=== PATIENT | female | born 1955 | race Caucasian/White ===

== ENCOUNTER 2023-10-31 12:58 | Inpatient (IN) | payer MEDICARE, SELFPAY ==
[2023-10-31] VITALS (42 sets, daily range): BP systolic 119–231; BP diastolic 56–145; PULSE 87–129; RESP 15–25; TEMP 36.5–36.9; O2SAT 92–99; BMI 25.7; BMI 25.9
--- NOTE | 2023-10-31 13:00 | RAD_ITS ---
STUDY: X-RAY CHEST REASON FOR EXAM: Female, 68 years old. Neuro deficit, acute, stroke suspected TECHNIQUE: Single AP portable view of the chest. COMPARISON: None. FINDINGS: EKG electrodes are seen. Vascular congestion and CHF. Left basilar atelectasis. There is borderline cardiomegaly. Normal mediastinum and ralhp. Normal visualized pulmonary arteries. Normal visualized aortic arch and descending thoracic aorta. Normal visualized thoracic spine. Normal visualized ribs, clavicles, and shoulders. There is no demonstrated abnormality of the visualized soft tissue structures of the upper abdomen. RAD/Chest 1 View IMPRESSION: Borderline cardiomegaly. Findings suggestive of vascular congestion and CHF. Electronically Signed: Mann Zamora MD at 14:47 EDT ,
--- NOTE | 2023-10-31 13:00 | CT_ITS ---
STUDY: CTA HEAD AND NECK WITH CONTRAST REASON FOR EXAM: Female, 68 years old. Neuro deficit, acute, stroke suspected RADIATION DOSAGE (If Supplied By Facility): CTDIvol = ( 29.31 ) mGy, DLP = ( 724.99 ) mGycm TECHNIQUE: CT angiography was performed with a multi-detector CT scanner. Data acquisition was obtained from the skull base through the vertex following intravenous administration of IV 100mL Isovue-370. MIP images were reconstructed from the axial data set. Post-processing of the angiographic images was performed, with multiplanar reformation and 3D reconstruction. Individualized dose optimization techniques were used for this CT. COMPARISON: No relevant priors. FINDINGS: Normal bilateral petrous carotid arteries. There is calcified plaque formation of the right cavernous carotid artery, without a cross-sectional luminal stenosis. There is calcified plaque formation of the left cavernous carotid artery, without a cross-sectional luminal stenosis. Normal right A1 segments of the anterior cerebral artery. Normal left A1 segments of the anterior cerebral artery. Normal intact anterior communicating artery (ACOM). Normal bilateral A2 segments of the anterior cerebral arteries. Normal right M1 and M2 segments of the middle cerebral arteries, with a normal M1 bifurcation. Normal left M1 and M2 segments of the middle cerebral arteries, with a normal M1 bifurcation. Normal right posterior communicating artery (PCOM). Normal left posterior communicating artery (PCOM). Normal bilateral vertebral arteries. Normal basilar artery with a normal basilar bifurcation. The visualized bilateral superior cerebellar (SCA) arteries are normal. Normal bilateral P1, P2 and visualized P3 segments of the posterior cerebral arteries. Opacification of the right maxillary sinus. There is no demonstrated aneurysm of the [place]. AORTIC ARCH: There is atherosclerotic calcific plaque formation of the aortic arch and great vessels arising from the aortic arch, without a hemodynamically significant stenosis. There is a normal origin of the brachiocephalic, left common carotid, and left subclavian arteries. RIGHT CAROTID ARTERIES: Normal right common carotid artery (CCA). Normal right common carotid bulb. Normal origin of the right internal carotid (ICA) artery without a hemodynamically significant stenosis. Normal visualized cervical portion of the right internal carotid artery. Normal origin of the right external carotid artery (ECA). LEFT CAROTID ARTERIES: Normal left common carotid artery (CCA). Normal left common carotid bulb. Normal origin of the left internal carotid (ICA) artery without a hemodynamically significant stenosis. Normal visualized cervical portion of the left internal carotid artery. Normal origin of the left external carotid artery (ECA). VERTEBRAL ARTERIES: Normal bilateral vertebral arteries. CT/STROKE CTA Head AND Neck W/Con IMPRESSION: Atherosclerotic changes of the aortic arch. Small mediastinal adenopathy. N.B. : The above Results were Read Back by Mann Zamora MD to Michael Burgess and understanding confirmed on 10/31/2023 13:41:59 (ET). Electronically Signed: Mann Zamora MD at 13:43 EDT ,
--- NOTE | 2023-10-31 13:00 | EKG12_ITS ---
Test Reason : STROKE TEAM Blood Pressure : / mmHG Vent. Rate : 099 BPM Atrial Rate : 000 BPM P-R Int : 000 ms QRS Dur : 100 ms QT Int : 370 ms P-R-T Axes : 000 086 209 degrees QTc Int : 474 ms Atrial fibrillation with premature ventricular or aberrantly conducted complexes Incomplete right bundle branch block Nonspecific ST and T wave abnormality Prolonged QT Abnormal ECG Confirmed by Ramón Avery ([id number]), film or videotape editor [employer]IL [employer]ICE ([id number]) on 11/04/2023 5:59:09 AM Referred By: Confirmed By:Ramón Avery
--- NOTE | 2023-10-31 13:00 | CT_ITS ---
STUDY: CT HEAD STROKE PROTOCOL W/O CONTRAST INJECTION REASON FOR EXAM: Female, 68 years old. Neuro deficit, acute, stroke suspected RADIATION DOSAGE (If Supplied By Facility): CTDIvol = ( 44.99 ) mGy, DLP = ( 947.97 ) mGycm TECHNIQUE: Transaxial CT imaging of the brain was performed without administration of intravenous contrast material. Individualized dose optimization techniques were used for this CT. COMPARISON: No relevant priors. FINDINGS: Normal soft tissue structures. Normal calvarium. There is mild cerebral atrophy with widening of the extra-axial spaces and ventricular dilatation. There are areas of decreased attenuation within the white matter tracts of the supratentorial brain, consistent with microvascular disease changes. Small lacunae in the insular cortex of the left temporal lobe. Lacuna in the right thalamus. Normal brainstem. Normal cerebellum. There is no intracranial hemorrhage. There are no findings of an acute ischemic infarction. Atherosclerotic calcification of the cavernous portions of internal carotid arteries bilaterally. Normal visualized paranasal sinuses. ASPECT score: 10 CT/STROKE Brain/Head without Cont IMPRESSION: Chronic involutional changes of the brain. Findings there is a old lacunar in the insular cortex of the left temporal lobe and right thalamus N.B. : The above Results were Read Back by Mann Zamora MD to Michael Burgess and understanding confirmed on 10/31/2023 13:16:22 (ET). Electronically Signed: Mann Zamora MD at 13:16 EDT ,
--- NOTE | 2023-10-31 13:02 | ED.VIS.STROK ---
HPI History of Present Illness Chief Complaint: Stroke Alert Informant: patient, family ( not here on initial presentation.) and EMS Onset/Context/Timing Onset: Today Context: Sudden Onset and - (Approximately 12:15 PM.) Timing: Continuous Quality and Location: Positive for Left Arm Weakness and Left Leg Weakness Onset: 12:15 PM Current Severity: Severe Maximum Severity: Severe Associated Symptoms Associated Symptoms: Negative for Headache, Nausea, Vomiting or Chest Pain Narrative Narrative: 68-year-old female her and her are from [place] they were camping locally and around 12:15 PM today about 45 minutes ago she had sudden onset of left-sided weakness and mental status change. Reportedly no recent illness. She is a limited informant. History currently is from the [facility]. is not here yet. Reportedly she has a history of A-fib and diabetes and is on Coumadin. No known stroke history. Prior similar symptoms: No Recent Illness/Hospitalization: No [facility] Medical History (Updated 10/31/23 @ 14:14 by Carlos Alberto Barragan) Diabetes mellitus Home Medications ?Medication ?Instructions ?Recorded ?Last Taken ?Type biotin 5,000 mcg sublingual tablet 5,000 mcg sublingual DAILY 10/31/23 10/31/23 History carvedilol 25 mg tablet 50 mg PO BID 10/31/23 10/31/23 History cephalexin 250 mg capsule 500 mg PO DAILY 10/31/23 10/31/23 History cyclosporine 0.05 % eye drops in a 1 drp EACH EYE Q12H 10/31/23 Unknown History dropperette (Restasis) digoxin 250 mcg (0.25 mg) tablet 250 mcg PO DAILY 10/31/23 10/31/23 History (Digitek) estradiol 0.01% (0.1 mg/gram) 2 g vaginal MOWEFR 10/31/23 Unknown History vaginal cream (Estrace) furosemide 20 mg tablet 20 mg PO DAILY 10/31/23 10/31/23 History insulin glargine 100 unit/mL (3 35 unit subcut QPM 10/31/23 10/30/23 History mL) subcutaneous pen (Lantus Solostar U-100 Insulin) insulin lispro 100 unit/mL 1 unit subcut TID 10/31/23 10/31/23 History subcutaneous pen (Humalog KwikPen (U-100) Insulin) irbesartan 300 mg tablet 300 mg PO DAILY 10/31/23 10/31/23 History rivaroxaban 20 mg tablet (Xarelto) 20 mg PO DAILY 10/31/23 10/31/23 History rosuvastatin 5 mg tablet 5 mg PO DAILY 10/31/23 10/31/23 History tobramycin 0.3 % eye drops 1 drp EACH EYE Q8H 10/31/23 Unknown History Allergy/AdvReac Type Severity Reaction Status Date / Time morphine Allergy Mild PT UNSURE Verified 10/31/23 13:34 OF REACTION Social History Smoking Status: Never smoker ROS ROS ED ROS Narrative Recent UTI per nursing. Very limited history due to mental status currently. Review of Systems ROS Unobtainable: due to mental status EXAM Physical Exam Narrative Exam Narrative: 68-year-old female brought in by squad mats in the ambulance bay. We do not have vital signs as of yet. Patient is awake. Pupils round react to light. No facial droop. She seems confused. There is no trauma to her face or head. Neck nontender. Lungs clear to auscultation bilaterally. Heart irregularly irregular. Chest wall and ribs nontender. Abdomen soft nontender. She seems to have weakness in her left lower extremity. Her right arm and leg appear unremarkable when she is moving the left arm. Neurologically she is confused. She is a limited informant. She follows very limited commands. She has obvious left leg weakness. Patient was made stroke protocol and we were notified 50 minutes prior to arrival. She is currently going to CAT scan. Const Vital Signs: 10/31/23 13:00 10/31/23 13:00 10/31/23 13:09 Temperature 98.1 F Temperature Source Oral Pulse Rate 96 97 Respiratory Rate 18 22 H Blood Pressure 184/98 H 184/98 H Blood Pressure Mean 126 126 Pulse Ox 94 98 93 Oxygen Delivery Method Room Air Nasal Cannula Room Air Oxygen Flow Rate (L/min) 3 10/31/23 13:21 10/31/23 13:30 10/31/23 13:42 Temperature 98.2 F Temperature Source Axillary Pulse Rate 90 110 H Respiratory Rate 18 21 H Blood Pressure 175/107 H 231/131 H 175/107 H Blood Pressure Mean 129 164 Pulse Ox 93 98 Oxygen Delivery Method Room Air Nasal Cannula Oxygen Flow Rate (L/min) 2 3 10/31/23 13:58 10/31/23 14:00 10/31/23 14:00 Temperature Temperature Source Pulse Rate 87 94 102 H Respiratory Rate 24 H 24 H 22 H Blood Pressure 213/102 H 213/102 H 179/108 H Blood Pressure Mean 139 139 131 Pulse Ox 98 99 99 Oxygen Delivery Method Nasal Cannula Nasal Cannula Nasal Cannula Oxygen Flow Rate (L/min) 3 3 3 10/31/23 14:21 10/31/23 14:30 10/31/23 15:00 Temperature 98.0 F 97.9 F Temperature Source Axillary Axillary Pulse Rate 101 H 117 H 111 H Respiratory Rate 15 21 H 18 Blood Pressure 176/111 H 164/117 H 160/101 H Blood Pressure Mean 132 132 120 Pulse Ox 99 95 97 Oxygen Delivery Method Nasal Cannula Nasal Cannula Nasal Cannula Oxygen Flow Rate (L/min) 3 3 3 10/31/23 15:00 Temperature 97.9 F Temperature Source Axillary Pulse Rate 106 H Respiratory Rate 18 Blood Pressure 160/101 H Blood Pressure Mean 120 Pulse Ox 98 Oxygen Delivery Method Nasal Cannula Oxygen Flow Rate (L/min) 3 Positive well nourished and well developed; Negative for cachectic, contractures or unkempt General Appearance ED: well developed; Negative for unkempt, cachectic, contractures or NAD Nutritional Appearance: Negative for cachectic HEENT Reports moist mucous membranes atraumatic; Negative for trauma Eyes General Eye ED: Negative for pale conjunctiva or scleral icterus Neck no lymphadenopathy, supple and no JVD General: Negative for tenderness Thyroid: Negative for other Chest Wall inspection of chest normal and palpation of chest normal Resp normal respiratory effort and clear to auscultation bilaterally Effort and Inspection: Negative for retractions or pain with movement Auscultation: Negative for rales, rhonchi, wheezes or diminished lung sounds Cardio no murmurs Rate: Negative for regular rate Rhythm: abnormal rhythm GI normal to inspection, nondistended, normoactive bowel sounds, soft to palpation, non-tender, non-distended and no masses Inspection: Negative for abdominal distention Auscultation: normoactive bowel sounds Palpation: Negative for tender, guarding, hepatomegaly or mass Back/Spine no CVA tenderness General Back: Negative for CVA tenderness Cervical Spine: Negative for cervical spine tenderness Thoracic Spine / Upper Back: Negative for thoracic spinal tenderness Lumbar Spine / Lower Back: Negative for lumbar spinal tenderness Extremity Negative for normal to inspection Extremity Narrative: Left lower extremity weakness. Not moving it. General Extremety ED: Negative for deformity, edema or tenderness General Extremity: Negative for deformity or edema Neuro No oriented x3 Neuro Narrative: Confused. Left lower extremity weakness. Limited informant. Sensorium / Orientation: alert, oriented to person, orientation impaired and confused; Negative for oriented to place, oriented to time, lethargic or stuporous Speech: speech normal Motor Exam: strength abnormal Psych Negative for mental status grossly normal Appearance: Negative for unkempt Attitude: agitated Mood & Affect: Negative for depressed, anxious or tearful Skin no wounds General Skin Exam: Negative for jaundice Lesions: no lesions Rashes: no rashes Trauma: Negative for abrasion NIHSS NIHSS Initial: 1a Level of Consciousness: 1 1b LOC Questions (Score 2 if aphasic/stupor): 1 1c LOC Commands (Only score 1st attempt): 1 2 Best Gaze (If aphasic, use reflexive mvmts.): 0 3 Visual: 0 4 Facial Palsy: 1 5 Motor Arm Right (UN = amputation/fusion): 0 5 Motor Arm Left: 1 6 Motor Leg Right: 0 6 Motor Leg Left: 1 7 Limb ataxia (Only + if out of proportion): 1 8 Sensory (Aphasia/stupor=0 or 1, coma=2): 0 9 Best Language: 0 10 Dysarthria (mute, coma=2, intubated=UN): 0 11 Extinction and Inattention (only scored if +): 0 (NIH is approximately 7. Patient is confused show she does not understand and follow certain commands. She has a mild left sided facial droop along with some left arm weakness that is improving and significant left leg weakness.) Total Score: 7 MDM MDM MDM Narrative Medical decision making narrative: 68-year-old female with sudden onset of confusion and left-sided weakness. She has a history of A-fib is on Coumadin and reportedly is being treated for UTI. Patient was made a stroke protocol on arrival. She is currently in CAT scan. Differential include acute stroke versus acute intracranial bleed. She is within the time interval and criteria to get tenecteplase. Patient is on Coumadin however if her INR is less than 1.7 I already discussed this with [facility] neurology who did [place] and evaluate the patient themselves we both think that she would be a TNK candidate. Lifetime she is within the window. Patient is too confused to really give consent and there is still no family present. As soon as her arrived in triage nurses called me and I went and spoke to him in the waiting room. He initially was unsure of her blood thinner thought it might be Coumadin when I looked through the med list that he had on his cell phone it appears to be Xarelto. I came in to notify the nurses of that and patient is already received a TNK IV. She is also receiving labetalol for her blood pressure. states she has been more weak recently. Had more of a sudden onset today of left-sided weakness. That is when he called the squad. Repeat exam at 3:19 PM. Unchanged. Patient will answer questions. Her neurologic exam she has shown some movement of her left leg since a TNK. She remains confused. Her repeat CT to rule out a bleed was unchanged and unremarkable other than chronic changes. Her current blood pressures 160/101. I spoke to her at length. She will be admitted to the hospital for suspected stroke with left-sided weakness. He is comfortable with the plan. Patient's NIH has not had any significant changes still around 7. It is difficult due to her confusion. History & Record Review Discussion w/independent historian: EMS personnel, Patient and Family Additional record(s) reviewed:: No prior records Lab Data Attestation: I reviewed the patient's lab results. Lab results narrative: CBC shows white count 8.8. H&H 12.40. Platelets 314. BGT 240. PT/INR is 15 and 1.3. PTT of 43. CAT scan of the brain shows no acute intracranial bleed. Old lacunar infarct. Read by the radiologist. Reviewed by me. Radiologist read the CAT scan is chronic but no acute processes. Patient did have a second CAT scan because of lethargy after the thrombolytic and it showed no acute change and no acute bleed. Read by the radiologist and reviewed by me. Electrolytes show a potassium of 3.3. Gap of 11. Normal BUN of 13 creatinine 0.99. Glucose is 242. Troponin is normal at 20. Urinalysis shows no nitrites nor white or red cells. No bacteria. Chest x-ray chronic changes possibly vascular congestion. Labs: Laboratory Results - last 24 hr 10/31/23 10/31/23 10/31/23 13:14 13:19 13:55 WBC 8.8 RBC 4.82 Hgb 12.8 Hct 40.3 MCV 83.6 MCH 26.6 L MCHC 31.8 L RDW Std Deviation 40.7 RDW Coeff of Lacy 13.4 Plt Count 314 MPV 11.3 Immature Gran % (Auto) 0.300 Neut % (Auto) 76.1 H Lymph % (Auto) 14.3 L [place] % (Auto) 6.2 Eos % (Auto) 2.5 Baso % (Auto) 0.6 Absolute Neuts (auto) 6.7 Absolute Lymphs (auto) 1.25 Nucleated RBC % 0 PT 15.9 H INR 1.3 APTT 43.0 H Sodium 141 Potassium 3.3 L Chloride 102 Carbon Dioxide 28.0 Anion Gap 11 BUN 13 Creatinine 0.99 Estim Creat Clear Calc 51.98 Est GFR (MDRD) Af Amer 72 Est GFR (MDRD) Non-Af 60 BUN/Creatinine Ratio 13.2 Glucose 242 H Calcium 9.3 Troponin I High Sens 20 Urine Color Yellow Urine Clarity Sl. Cloudy Urine pH 7.0 Ur Specific [place] 1.010 Urine Protein 500 H Urine Glucose (UA) 100 H Urine Ketones Negative Urine Occult Blood 250 H Urine Nitrite Negative Urine Bilirubin Negative Urine Urobilinogen Normal Ur Leukocyte Esterase Negative Urine RBC 25-50 SEEN Urine WBC 0 SEEN Ur Squamous Epith Cells 0-5 SEEN Urine Bacteria 0 SEEN Urine Mucus 0 SEEN POC Glucose 240 H Radiography Chest X-Ray - ED: 1 View, Read by ED Physician, Heart, Mediastinum, Bony Structures, No Acute Disease and Chronic Changes Diagnostic Testing: Clinical Impression(s) from Imaging Studies Brain CT 10/31/23 13:00 IMPRESSION: Chronic involutional changes of the brain. Findings there is a old lacunar in the insular cortex of the left temporal lobe and right thalamus N.B. : The above Results were Read Back by Mann Zamora MD to Michael Burgess and understanding confirmed on 10/31/2023 13:16:22 (ET). Electronically Signed: Mann Zamora MD at 13:16 EDT , ADDENDUM: 10/31/23 1323 IMPRESSION: Chronic involutional changes of the brain. Findings there is a old lacunar in the insular cortex of the left temporal lobe and right thalamus N.B. : The above Results were Read Back by Mann Zamora MD to Michael Burgess and understanding confirmed on 10/31/2023 13:16:22 (ET). Electronically Signed: Mann Zamora MD at 13:16 EDT , Chest X-Ray 10/31/23 13:00 IMPRESSION: Borderline cardiomegaly. Findings suggestive of vascular congestion and CHF. Electronically Signed: Mann Zamora MD at 14:47 EDT , Head/Neck CTA 10/31/23 13:00 IMPRESSION: Atherosclerotic changes of the aortic arch. Small mediastinal adenopathy. N.B. : The above Results were Read Back by Mann Zamora MD to Michael Burgess and understanding confirmed on 10/31/2023 13:41:59 (ET). Electronically Signed: Mann Zamora MD at 13:43 EDT , ADDENDUM: 10/31/23 1350 IMPRESSION: Atherosclerotic changes of the aortic arch. Small mediastinal adenopathy. N.B. : The above Results were Read Back by Mann Zamora MD to Michael Burgess and understanding confirmed on 10/31/2023 13:41:59 (ET). Electronically Signed: Mann Zamora MD at 13:43 EDT , Brain CT 10/31/23 14:29 IMPRESSION: Chronic involutional changes of the brain. No acute abnormality is seen. Electronically Signed: Mann Zamora MD at 14:57 EDT , Chest x-ray, portable, single view interpreted by myself and the radiologist shows chronic changes. Normal cardiac silhouette. There are diffuse opacities and a be secondary to vascular congestion such as pulmonary edema. No obvious pneumonia. Rhythm Strip Rhythm Strip: A-fib Rate: 99 Ectopy: None EKG Initial EKG: Attestation: I personally reviewed and interpreted this EKG as follows: Interpretation: No Acute Injury Pattern and Atrial Fibrillation Comments: A-fib rate of 99. PVCs. Incomplete right bundle branch block. Prior EKG tracings: not available for review Prior: No Prior Critical Care Time Critical Care Time: Yes Critical care time (excluding procedures): 30-74 minutes, Including time spent:, Discussing w/Patient &/or Family/[employer], Discussing w/Consultants, Arranging Admission or Transfer, Performing Direct Patient Care at Bedside and - (40 minutes) Discharge Plan Dx/Rx/DC Orders Clinical Impression: Acute embolic stroke, A-fib, History of hypertension, Acute confusion Disposition Disposition: Acute Care Hospital [facility]
[2023-10-31 13:22] LABS: Absolute Lymphocyte Count 1.25 X10^3/uL (0.83-4.51); Absolute Neutrophil Count 6.7 X10^3/uL (2.0-7.7); Basophil# 0.05 X10^3/uL; Basophil% 0.6 % (0-1); Eosinophil# 0.22 X10^3/uL; Eosinophils% 2.5 % (0-5); Hematocrit 40.3 % (37-47); Hemoglobin 12.8 g/dL (12.0-15.0); Lymphocyte # 1.25 X10^3/ul (0.83-4.51); Lymphocyte % 14.3 % (19-41); Mean Corp Hgb Conc 31.8 g/dL (32-36); Mean Corpuscular Hgb 26.6 pg (27.0-32.0); Mean Corpuscular Volume 83.6 fL (81-99); Mean Platelet Vol. 11.3 fl (6.2-12.0); Monocyte# 0.54 X10^3/uL; Monocyte% 6.2 % (0-10); NRBC Flagged by Analyzer 0 % (0-5); Neutrophil # 6.68 X10^3/uL (2.7-7.7); Neutrophil % 76.1 % (47-70); Platelet Count 314 K/mm3 (150-450); RBC Distribution Width CV 13.4 % (11.6-14.6); RBC Distribution Width SD 40.7 fl (35.1-43.9); Red Blood Count 4.82 M/mm3 (4.2-5.4); White Blood Count 8.8 K/mm3 (4.4-11.0)
[2023-10-31 13:29] LABS: International Normalized Ratio 1.3; Prothrombin Time (Protime)PT. 15.9 SECONDS (11.7-14.9)
[2023-10-31 13:33] LABS: Bedside Glucose 240 mg/dL (74-106)
[2023-10-31] MEDS: TENECTEPLASE 2851.2 MG IV (13:42)
[2023-10-31 13:47] LABS: Anion Gap 11 (5-15); BUN 13 mg/dL (7-18); BUN/Creat Ratio 13.2 RATIO (10-20); Calcium,Total 9.3 mg/dL (8.5-10.1); Chloride 102 mmol/L (98-107); Creatinine, Serum 0.99 mg/dL (0.55-1.02); EST Glomerular Filtration Rate 60 mL/min (>60); Est Glom Filt Rate - Afr Amer 72 mL/min (>60); Estimated Creatinine Clearance 51.98 ml/min; Glucose 242 mg/dL (74-106); Potassium 3.3 mmol/L (3.5-5.1); Sodium Level 141 mmol/L (136-145); Troponin-I HS 20 pg/mL (3.0-54.0)
[2023-10-31] MEDS: Labetalol (Compound) 20 MG/4 ML SYRINGE IV ×4 (13:48→16:56)
[2023-10-31 14:00] LABS: Bacteria 0 SEEN /hpf (None Seen); Mucous, Urine 0 SEEN /hpf (<or=2+); White Blood Cells 0 SEEN /hpf (0-5)
[2023-10-31 14:07] LABS: Color, Urine Yellow (Yellow); Glucose, Dipstick 100 mg/dl (Normal); Ketone-Dipstick Negative (Negative); Leukocyte Esterase-Dipstick Negative /ul (Negative); Nitrite-Dipstick Negative (Negative); Occult Blood-Urine 250 /ul (Negative); Protein-Dipstick 500 mg/dl (Negative); Urine Bilirubin Dipstick Negative (Negative); Urine Clarity Sl. Cloudy (Clear); Urine Urobilinogen Normal (Normal)
[2023-10-31 14:17] LABS: Red Blood Cells-Urine 25-50 SEEN /hpf (0-5); Squamous Epithelial Cells - UA 0-5 SEEN /hpf (5-10)
--- NOTE | 2023-10-31 14:29 | CT_ITS ---
STUDY: CT BRAIN WITHOUT CONTRAST REASON FOR EXAM: Female, 68 years old. Headache post stroke and TNK RADIATION DOSAGE (If Supplied By Facility): CTDIvol = ( 47.06 ) mGy, DLP = ( 925.65 ) mGycm TECHNIQUE: Transaxial CT imaging of the brain was performed without administration of intravenous contrast material. Individualized dose optimization techniques were used for this CT. COMPARISON: No relevant priors. FINDINGS: Normal soft tissue structures. Normal calvarium. There is mild cerebral atrophy with widening of the extra-axial spaces and ventricular dilatation. Normal white matter tracts of the cerebral hemispheres. Old lacunar infarct in the insular cortex of the left temporal lobe and in the right thalamus. Normal brainstem. Normal cerebellum. There is no intracranial hemorrhage. There are no findings of an acute ischemic infarction. Partial opacification of the right maxillary sinus. CT/Brain/Head without Contrast IMPRESSION: Chronic involutional changes of the brain. No acute abnormality is seen. Electronically Signed: Mann Zamora MD at 14:57 EDT ,
--- NOTE | 2023-10-31 16:08 | PCM.HP.STD ---
HPI - General General Date of Admission: 10/31/23 Date of Service: 10/31/23 Chief Complaint: Left-sided weakness. Confusion HPI Narrative CR MICHAELS, is a 68 F was brought to ED by her because she was not acting right and had sudden onset of left-sided weakness. As per the , patient was camping here from [place] and he suddenly noticed left-sided weakness around 12:15 PM. The history was mainly taken from the as patient still confused disoriented does not follow or keep up with the conversation. She was also confused, not following the instructions and not interactive as per the . In the morning when she woke up and as per she was not able to get out of the bed and he helped her but after that he did not notice any weakness. After they are done with the breakfast, she was still feeling weak and he found she has left-sided weakness. Patient history of chronic A-fib and she is on Xarelto. Stroke alert was called as per ED notification by EMS. Patient blood pressure was high in the ED and received labetalol to bring down the blood pressure. ED physician talked to the [facility] neurologist and I agreed for tenecteplase and was given. As per ED physician, he was told that she is on warfarin and INR was less than 1.7 therefore she got tenecteplase and it was learnt later on by ED physician that actually she was on Xarelto not on warfarin but by that time patient already had received tenecteplase. Repeat CT head was done which was negative for any acute bleed. Chest x-ray EKG and CT head were all reviewed discussed with assessment and plan. Patient also has a history of recurrent UTI as she had about 3 UTI since fall last year. Initially she was on Cipro but was followed by urologist probably suggested to Cipro and changed to Keflex. She had 3 days of Keflex till now. Past medical history: Chronic A-fib on Xarelto. History of CHF, details unclear, patient on Lasix 20 mg daily. Hypertension, dyslipidemia and recurrent UTI. Patient did not had prior stroke as per the . Family history: Could not be obtained as patient is confused and disoriented. Patient is further admitted in the ICU [facility] Medical History Diabetes mellitus Home Medications ?Medication ?Instructions ?Recorded ?Last Taken ?Type biotin 5,000 mcg sublingual tablet 5,000 mcg sublingual DAILY 10/31/23 10/31/23 History carvedilol 25 mg tablet 50 mg PO BID 10/31/23 10/31/23 History cephalexin 250 mg capsule 500 mg PO DAILY 10/31/23 10/31/23 History cyclosporine 0.05 % eye drops in a 1 drp EACH EYE Q12H 10/31/23 Unknown History dropperette (Restasis) digoxin 250 mcg (0.25 mg) tablet 250 mcg PO DAILY 10/31/23 10/31/23 History (Digitek) estradiol 0.01% (0.1 mg/gram) 2 g vaginal MOWEFR 10/31/23 Unknown History vaginal cream (Estrace) furosemide 20 mg tablet 20 mg PO DAILY 10/31/23 10/31/23 History insulin glargine 100 unit/mL (3 35 unit subcut QPM 10/31/23 10/30/23 History mL) subcutaneous pen (Lantus Solostar U-100 Insulin) insulin lispro 100 unit/mL 1 unit subcut TID 10/31/23 10/31/23 History subcutaneous pen (Humalog KwikPen (U-100) Insulin) irbesartan 300 mg tablet 300 mg PO DAILY 10/31/23 10/31/23 History rivaroxaban 20 mg tablet (Xarelto) 20 mg PO DAILY 10/31/23 10/31/23 History rosuvastatin 5 mg tablet 5 mg PO DAILY 10/31/23 10/31/23 History tobramycin 0.3 % eye drops 1 drp EACH EYE Q8H 10/31/23 Unknown History Allergy/AdvReac Type Severity Reaction Status Date / Time morphine Allergy Mild PT UNSURE Verified 10/31/23 13:34 OF REACTION Social History Smoking Status: Never smoker ROS ROS Narrative 14 system ROS could not be obtained because patient is confused and disoriented and cannot participate in the history taking Review of Systems ROS Unobtainable: due to encephalopathy and due to mental status Vital Signs Vital Signs Vital Signs: 10/31/23 13:00 10/31/23 13:00 10/31/23 13:09 Temperature 98.1 F Temperature Source Oral Pulse Rate 96 97 Respiratory Rate 18 22 H Blood Pressure 184/98 H 184/98 H Blood Pressure Mean 126 126 Pulse Ox 94 98 93 Oxygen Delivery Method Room Air Nasal Cannula Room Air Oxygen Flow Rate (L/min) 3 10/31/23 13:21 10/31/23 13:30 10/31/23 13:42 Temperature 98.2 F Temperature Source Axillary Pulse Rate 90 110 H Respiratory Rate 18 21 H Blood Pressure 175/107 H 231/131 H 175/107 H Blood Pressure Mean 129 164 Pulse Ox 93 98 Oxygen Delivery Method Room Air Nasal Cannula Oxygen Flow Rate (L/min) 2 3 10/31/23 13:58 10/31/23 14:00 10/31/23 14:00 Temperature Temperature Source Pulse Rate 87 94 102 H Respiratory Rate 24 H 24 H 22 H Blood Pressure 213/102 H 213/102 H 179/108 H Blood Pressure Mean 139 139 131 Pulse Ox 98 99 99 Oxygen Delivery Method Nasal Cannula Nasal Cannula Nasal Cannula Oxygen Flow Rate (L/min) 3 3 3 10/31/23 14:21 10/31/23 14:30 10/31/23 15:00 Temperature 98.0 F 97.9 F Temperature Source Axillary Axillary Pulse Rate 101 H 117 H 111 H Respiratory Rate 15 21 H 18 Blood Pressure 176/111 H 164/117 H 160/101 H Blood Pressure Mean 132 132 120 Pulse Ox 99 95 97 Oxygen Delivery Method Nasal Cannula Nasal Cannula Nasal Cannula Oxygen Flow Rate (L/min) 3 3 3 10/31/23 15:00 10/31/23 15:30 10/31/23 16:00 Temperature 97.9 F 97.7 F L Temperature Source Axillary Axillary Pulse Rate 106 H 110 H 109 H Respiratory Rate 18 18 16 Blood Pressure 160/101 H 173/105 H 172/103 H Blood Pressure Mean 120 127 126 Pulse Ox 98 98 97 Oxygen Delivery Method Nasal Cannula Nasal Cannula Nasal Cannula Oxygen Flow Rate (L/min) 3 3 3 Weight Weight: 174 lb 2.643 oz Body Mass Index (BMI) 25.7 Physical Exam Narrative General: Confused, disoriented. Eyes closed HEENT: Atraumatic, PERRLA, EOMI, Normocephalic Oral: Oral mucosa dry no Gingival or Mucosal Lesions/ Ulcerations Neck: Supple, No JVD, Negative Carotid Bruits Chest wall/Lungs: Air entry diminished in bilateral lung bases. No crepitation/rhonchi Cardiovascular: Irregular rhythm, Normal S1, Normal S2, systolic murmur present. Abdomen: Bowel Sounds Present, Soft, Non Tender, Non-Distended : No dysuria. No renal angle tenderness. No suprapubic tenderness. Extremities: No edema, Capillary Refill Less than 3 Seconds Skin: No rashes, No breakdown Musculoskeletal: No Tenderness to Palpation of Joints or Extremities Neurological: Detailed neuro exam unobtainable as patient is confused but NIH stroke scale 10. Mainly because patient is confused could not answer questions. Minor physical paralysis. Psych/Mental Status: Flat affect Results Lab / Micro Data 10/31/23 13:19 10/31/23 13:19 Labs: Laboratory Results - last 24 hr 10/31/23 13:14: POC Glucose 240 H 10/31/23 13:19: WBC 8.8, RBC 4.82, Hgb 12.8, Hct 40.3, MCV 83.6, MCH 26.6 L, MCHC 31.8 L, RDW Std Deviation 40.7, RDW Coeff of Lacy 13.4, Plt Count 314, MPV 11.3, Immature Gran % (Auto) 0.300, Neut % (Auto) 76.1 H, Lymph % (Auto) 14.3 L, Kershaw % (Auto) 6.2, Eos % (Auto) 2.5, Baso % (Auto) 0.6, Absolute Neuts (auto) 6.7, Absolute Lymphs (auto) 1.25, Nucleated RBC % 0, PT 15.9 H, INR 1.3, APTT 43.0 H, Sodium 141, Potassium 3.3 L, Chloride 102, Carbon Dioxide 28.0, Anion Gap 11, BUN 13, Creatinine 0.99, Estim Creat Clear Calc 51.98, Est GFR (MDRD) Af Amer 72, Est GFR (MDRD) Non-Af 60, BUN/Creatinine Ratio 13.2, Glucose 242 H, Calcium 9.3, Troponin I High Sens 20 10/31/23 13:55: Urine Color Yellow, Urine Clarity Sl. Cloudy, Urine pH 7.0, Ur Specific [place] 1.010, Urine Protein 500 H, Urine Glucose (UA) 100 H, Urine Ketones Negative, Urine Occult Blood 250 H, Urine Nitrite Negative, Urine Bilirubin Negative, Urine Urobilinogen Normal, Ur Leukocyte Esterase Negative, Urine RBC 25-50 SEEN, Urine WBC 0 SEEN, Ur Squamous Epith Cells 0-5 SEEN, Urine Bacteria 0 SEEN, Urine Mucus 0 SEEN Rhythm Strip Rhythm Strip: A-fib Rate: 99 Ectopy: None Imaging Radiology Impression Brain CT 10/31/23 13:00 IMPRESSION: Chronic involutional changes of the brain. Findings there is a old lacunar in the insular cortex of the left temporal lobe and right thalamus N.B. : The above Results were Read Back by Mann Zamora MD to Michael Burgess and understanding confirmed on 10/31/2023 13:16:22 (ET). Electronically Signed: Mann Zamora MD at 13:16 EDT , ADDENDUM: 10/31/23 1323 IMPRESSION: Chronic involutional changes of the brain. Findings there is a old lacunar in the insular cortex of the left temporal lobe and right thalamus N.B. : The above Results were Read Back by Mann Zamora MD to Michael Burgess and understanding confirmed on 10/31/2023 13:16:22 (ET). Electronically Signed: Mann Zamora MD at 13:16 EDT , Chest X-Ray 10/31/23 13:00 IMPRESSION: Borderline cardiomegaly. Findings suggestive of vascular congestion and CHF. Electronically Signed: Mann Zamora MD at 14:47 EDT , Head/Neck CTA 10/31/23 13:00 IMPRESSION: Atherosclerotic changes of the aortic arch. Small mediastinal adenopathy. N.B. : The above Results were Read Back by Mann Zamora MD to Michael Burgess and understanding confirmed on 10/31/2023 13:41:59 (ET). Electronically Signed: Mann Zamora MD at 13:43 EDT , ADDENDUM: 10/31/23 1350 IMPRESSION: Atherosclerotic changes of the aortic arch. Small mediastinal adenopathy. N.B. : The above Results were Read Back by Mann Zamora MD to Michael Burgess and understanding confirmed on 10/31/2023 13:41:59 (ET). Electronically Signed: Mann Zamora MD at 13:43 EDT , Brain CT 10/31/23 14:29 IMPRESSION: Chronic involutional changes of the brain. No acute abnormality is seen. Electronically Signed: Mann Zamora MD at 14:57 EDT , Assessment & Plan Assessment/Plan (1) Acute stroke due to ischemia: (2) Acute encephalopathy: PLAN: Plan This is a 58-year-old female being admitted for acute onset of confusion disorientation along with left-sided weakness. 1. Acute ischemic stroke suspected, embolic in nature due to chronic A-fib: Patient is being admitted in ICU after tenecteplase. CT brain shows old left infarct in the insular cortex on the left temporal lobe and right thalamus. CTA head and neck shows atherosclerotic changes of the aortic arch. There was no bleed therefore tenecteplase was given. Repeat CT head after tenecteplase does not show acute bleeding. PT, OT, speech therapy/swallow evaluation and management, nursing NIH stroke scale, BP and glucose monitoring and control as per stroke protocol. TSH, A1c fasting lipid profile tomorrow AM. MRI brain and 2D echo with bubble contrast study ordered. English Tutor and [facility] neurologist consult. If there is change in acute mental status than baseline or NIH stroke score of worsening will need to repeat CT scan of the head 2. Chronic A-fib on Xarelto and CHF, exact classification, etiology and severity unclear: Hold Xarelto. By mistake, tenecteplase was already given by thinking that patient is on warfarin and INR is at 1.3. Later found that patient is on Xarelto. Patient on carvedilol, digoxin and irbesartan which currently on hold as per stroke guidelines and protocol. Patient on Lasix 20 mg daily which is on hold. 2D echo has been ordered 3. Uncontrolled hypertension: Blood pressure control as per stroke guidelines for first 48 hours. 4. Diabetes mellitus type 2: Patient on Lantus insulin 35 units subcutaneous p.m. As patient is n.p.o., Lantus with decreased to 20 units with holding parameters. Accu-Cheks every 6 hourly while n.p.o. then changed to every 6 hourly after oral feed is allowed. Humalog sliding scale coverage. 5. Dyslipidemia: On rosuvastatin changed to atorvastatin as per hospital formulary. 6. Recurrent UTI: Patient on Keflex and had 3 days. Keflex continued. DVT prophylaxis, high risk: Pharmacological prophylaxis contact in first 48 hours after tenecteplase. Bilateral SCDs Living will/advanced directive/end of life care: Patient does have living will or advanced directive. After discussion of benefits/risks procedures involved with full code, DNR CC arrest and DNR CC, the patient's opted for full code. Patient does want artificial life support including intubation, tube feed, ventilator and/chest compression, central venous catheter, vasopressor and DC shock if needed Total time spent in [id number] encounter in discussion of advanced directive 17 minutes. Laboratory Results 10/31/23 13:14: POC Glucose 240 H 10/31/23 13:19: WBC 8.8, RBC 4.82, Hgb 12.8, Hct 40.3, MCV 83.6, MCH 26.6 L, MCHC 31.8 L, RDW Std Deviation 40.7, RDW Coeff of Lacy 13.4, Plt Count 314, MPV 11.3, Immature Gran % (Auto) 0.300, Neut % (Auto) 76.1 H, Lymph % (Auto) 14.3 L, Kershaw % (Auto) 6.2, Eos % (Auto) 2.5, Baso % (Auto) 0.6, Absolute Neuts (auto) 6.7, Absolute Lymphs (auto) 1.25, Nucleated RBC % 0, PT 15.9 H, INR 1.3, APTT 43.0 H, Sodium 141, Potassium 3.3 L, Chloride 102, Carbon Dioxide 28.0, Anion Gap 11, BUN 13, Creatinine 0.99, Estim Creat Clear Calc 51.98, Est GFR (MDRD) Af Amer 72, Est GFR (MDRD) Non-Af 60, BUN/Creatinine Ratio 13.2, Glucose 242 H, Calcium 9.3, Phosphorus 4.3, Magnesium 1.9, Troponin I High Sens 20 10/31/23 13:55: Urine Color Yellow, Urine Clarity Sl. Cloudy, Urine pH 7.0, Ur Specific [place] 1.010, Urine Protein 500 H, Urine Glucose (UA) 100 H, Urine Ketones Negative, Urine Occult Blood 250 H, Urine Nitrite Negative, Urine Bilirubin Negative, Urine Urobilinogen Normal, Ur Leukocyte Esterase Negative, Urine RBC 25-50 SEEN, Urine WBC 0 SEEN, Ur Squamous Epith Cells 0-5 SEEN, Urine Bacteria 0 SEEN, Urine Mucus 0 SEEN Clinical Impression(s) from Imaging Studies Brain CT 10/31/23 13:00 IMPRESSION: Chronic involutional changes of the brain. Findings there is a old lacunar in the insular cortex of the left temporal lobe and right thalamus Chest X-Ray 10/31/23 13:00 IMPRESSION: Borderline cardiomegaly. Findings suggestive of vascular congestion and CHF. Electronically Signed: Mann Zamora MD at 14:47 EDT , Head/Neck CTA 10/31/23 13:00 IMPRESSION: Atherosclerotic changes of the aortic arch. Small mediastinal adenopathy. Brain CT 10/31/23 14:29 IMPRESSION: Chronic involutional changes of the brain. No acute abnormality is seen. Charges/Coding Visit Charges Inpatient E&M: 50567 Init Hosp L3 Procedures Hospitalists Procedures: 08492 Advncd Care Plan 30 Min
[2023-10-31 16:51] LABS: Magnesium 1.9 mg/dL (1.6-2.6); Phosphorus 4.3 mg/dL (2.5-4.9)
[2023-10-31] MEDS: 0.9% Normal Saline (1000mL) 1,000 ML 75 ML IV (17:00)
[2023-10-31] MEDS: Nicardipine HCl-0.9% Sod Chlor 20 MG/200 ML IV.SOLN 50 MG CONT INF ×3 (17:10→20:35)
[2023-10-31 18:57] LABS: Amphetamine Urine VISTA NEGATIVE (<1000 ng/mL); Barbiturate Urine VISTA NEGATIVE (< 200 ng/mL); Benzodiazepine Urine VISTA NEGATIVE (< 200 ng/mL); Cocaine Urine VISTA NEGATIVE (< 300 ng/mL); Ecstacy Urine VISTA NEGATIVE (< 500 ng/mL); Methadone Urine VISTA NEGATIVE (< 300 ng/mL); PCP Urine VISTA NEGATIVE (< 25 ng/mL); THC Urine VISTA NEGATIVE (< 50 ng/mL); Vista UDS pH Range 7
--- NOTE | 2023-10-31 20:30 | NURSING ---
Pt watched closely on room camera, no movement at all noted to left arm or leg, while pt is purposely positioning bed sheet over self, scratching face and moving with right limbs; blunt tip needle removed from sheath, sensation assessed to all limbs: pt withdraws on right side, no motion from left; eyelids held open, eyes noted with forced deviation toward the right side, corneal reflex to right eye, absent on left eye, pupillary reflex sluggish on left. Facial movement symmetric. Pt mute when asked questions from NIHSS. Does not follow any commands. Stroke alert called.
--- NOTE | 2023-10-31 20:33 | CT_ITS ---
INDICATION: worsening NIH EXAMINATION: CT BRAIN - CT Head Stroke Protocol W/O Contrast Injection TECHNIQUE: Multiple axial images were obtained of the head without intravenous contrast. The protocol utilizes one or more of the following dose reduction techniques: automated exposure control, adjustment of mA and/or kV according to patient size,and/or use of iterative reconstruction technique. IV Contrast dosage and agent: None. RADIATION DOSAGE (If Supplied By Facility): CTDIvol = ( 44.99 ) mGy, DLP = ( 863.60 ) mGycm COMPARISON: October 31, 2023 2:37 PM FINDINGS: BRAIN PARENCHYMA: No intra- or extra-axial hemorrhage. No evidence of acute infarct. No intracranial mass or mass effect. There is preservation of the sexton/white matter interface. Posterior fossa structures are unremarkable. Old right thalamic infarct. Insular infarct in the left temporal lobe of uncertain chronicity most likely old. CSF SPACES: Mild cerebral atrophy No hydrocephalus. Basal cisterns are patent. CALVARIUM, SKULL BASE, PARANASAL SINUSES AND MASTOID AIR CELLS: Clear. No discrete lytic or blastic abnormalities. ORBITS: Postsurgical changes of the orbits. Calcific plaquing of the cavernous carotids. No evidence for acute bleed or other significant change since prior study CT/STROKE Brain/Head without Cont IMPRESSION: No evidence for acute bleed with findings unchanged previous exam. N.B. : The above Results were Read Back by Reyes Patino MD to Patricio García DO, and understanding confirmed on 10/31/2023 21:13:13 (ET). Electronically Signed: Reyes Patino MD at 21:23 EDT ,
--- NOTE | 2023-10-31 20:35 | NURSING ---
NS placed on hold for transport.
--- NOTE | 2023-10-31 20:36 | NURSING ---
Called [facility] for stroke alert due to increase in NIH. They said to call back once Dr. Murrell was ready to speak with the neurologist. Information relayed to remote encoding operations supervisor. Primary RN and remote encoding operations supervisor taking pt down to CT at this time.
[2023-10-31 20:54] LABS: Bedside Glucose 228 mg/dL (74-106)
--- NOTE | 2023-10-31 21:15 | NURSING ---
Cardene gtt placed on hold after speaking w/[facility] neurologist regarding having only one 20g PIV in the pt's wrist; questioned the MD about NO STICK policy s/p tenectaplase and risking infiltration of contrast and then not being able to infuse Cardene for BP control; MD's response just start another IV, it should be ok. LW PIV flushed w/10ml NS, Cardene stopped.
--- NOTE | 2023-10-31 21:32 | CT_ITS ---
STUDY: CTA HEAD AND NECK WITH CONTRAST REASON FOR EXAM: Female, 68 years old. worsening NIH RADIATION DOSAGE (If Supplied By Facility): CTDIvol = ( 25.51 ) mGy, DLP = ( 676.41 ) mGycm TECHNIQUE: CT angiography was performed with a multi-detector CT scanner. Data acquisition was obtained from the skull base through the vertex following intravenous administration of IV 100mL Isovue-[id number]. MIP images were reconstructed from the axial data set. Post-processing of the angiographic images was performed, with multiplanar reformation and 3D reconstruction. Individualized dose optimization techniques were used for this CT. COMPARISON: No relevant priors. FINDINGS: Normal bilateral petrous carotid arteries. Normal right cavernous carotid artery with a normal supraclinoid bifurcation. Minor calcific plaquing of the left cavernous carotid artery with a normal supraclinoid bifurcation. Normal right A1 segments of the anterior cerebral artery. Normal left A1 segments of the anterior cerebral artery. Normal intact anterior communicating artery (ACOM). Normal bilateral A2 segments of the anterior cerebral arteries. Normal right M1 and M2 segments of the middle cerebral arteries, with a normal M1 bifurcation. Normal left M1 and M2 segments of the middle cerebral arteries, with a normal M1 bifurcation. Right posterior commuting artery not visualized consistent with normal variant). Normal left posterior communicating artery (PCOM). Normal bilateral vertebral arteries. Normal basilar artery with a normal basilar bifurcation. The visualized bilateral superior cerebellar (SCA) arteries are normal. Normal bilateral P1, P2 and visualized P3 segments of the posterior cerebral arteries. There is no demonstrated aneurysm of the [place]. AORTIC ARCH: Normal visualized aortic arch. Normal origins of the brachiocephalic, left common carotid, and left subclavian arteries. RIGHT CAROTID ARTERIES: Normal right common carotid artery (CCA). Normal right common carotid bulb. Normal origin of the right internal carotid (ICA) artery without a hemodynamically significant stenosis. Normal visualized cervical portion of the right internal carotid artery. Normal origin of the right external carotid artery (ECA). LEFT CAROTID ARTERIES: Normal left common carotid artery (CCA). Minimal calcific plaquing of the left common carotid bulb. Normal origin of the left internal carotid (ICA) artery without a hemodynamically significant stenosis. Normal visualized cervical portion of the left internal carotid artery. Normal origin of the left external carotid artery (ECA). VERTEBRAL ARTERIES: Normal bilateral vertebral arteries. CT/CTA Head AND Neck W/ Contrast IMPRESSION: Mild atherosclerotic changes of the head and neck Electronically Signed: Reyes Patino MD at 22:27 EDT ,
--- NOTE | 2023-10-31 21:40 | NURSING ---
LW PIV patency verified s/p CT contrast push, flushed w/50ml NS per radiology, Cardene gtt restarted.
[2023-10-31] MEDS: Insulin Glargine-YFGN 100 UNIT/ML Pen 20 UNIT SC (21:52)
[2023-11-01] VITALS (29 sets, daily range): BP systolic 125–191; BP diastolic 54–112; PULSE 77–126; RESP 17–20; TEMP 36.6–39.4; O2SAT 17–99; BMI 26.0
[2023-11-01] MEDS: 0.9% Saline Lock 10 ML Syringe IV ×3 (00:42→16:49)
[2023-11-01] MEDS: Nicardipine HCl-0.9% Sod Chlor 20 MG/200 ML IV.SOLN 50 MG CONT INF ×2 (01:00→05:00)
[2023-11-01 03:54] LABS: Absolute Lymphocyte Count 1.18 X10^3/uL (0.83-4.51); Absolute Neutrophil Count 11.9 X10^3/uL (2.0-7.7); Basophil# 0.02 X10^3/uL; Basophil% 0.1 % (0-1); Eosinophil# 0.01 X10^3/uL; Eosinophils% 0.1 % (0-5); Hematocrit 38.6 % (37-47); Hemoglobin 12.8 g/dL (12.0-15.0); Lymphocyte # 1.18 X10^3/ul (0.83-4.51); Lymphocyte % 8.6 % (19-41); Mean Corp Hgb Conc 33.2 g/dL (32-36); Mean Corpuscular Hgb 27.6 pg (27.0-32.0); Mean Corpuscular Volume 83.2 fL (81-99); Mean Platelet Vol. 10.7 fl (6.2-12.0); Monocyte# 0.54 X10^3/uL; Monocyte% 3.9 % (0-10); NRBC Flagged by Analyzer 0 % (0-5); Neutrophil % 86.8 % (47-70); Platelet Count 320 K/mm3 (150-450); RBC Distribution Width CV 13.8 % (11.6-14.6); RBC Distribution Width SD 41.7 fl (35.1-43.9); Red Blood Count 4.64 M/mm3 (4.2-5.4); White Blood Count 13.7 K/mm3 (4.4-11.0)
[2023-11-01 04:18] LABS: Anion Gap 11 (5-15); BUN 18 mg/dL (7-18); BUN/Creat Ratio 14.1 RATIO (10-20); Calcium,Total 8.5 mg/dL (8.5-10.1); Chloride 102 mmol/L (98-107); Cholesterol 149 mg/dL (200); Creatinine, Serum 1.28 mg/dL (0.55-1.02); EST Glomerular Filtration Rate 44 mL/min (>60); Est Glom Filt Rate - Afr Amer 54 mL/min (>60); Estimated Creatinine Clearance 47.84 ml/min; Glucose 295 mg/dL (74-106); High Density Lipoprotein 38 mg/dL; Potassium 3.1 mmol/L (3.5-5.1); Sodium Level 139 mmol/L (136-145); Thyroid Stim Hormone (TSH) 0.89 uIU/mL (0.358-3.74); Triglycerides 127 mg/dL; Very Low Density Lipoprotein 25 mg/dL (5-40)
[2023-11-01] MEDS: 0.9% Normal Saline (1000mL) 1,000 ML 75 ML IV ×2 (05:53→19:13)
--- NOTE | 2023-11-01 05:55 | ECHOD_ITS ---
Reason For Study: CVA Procedure This was a 2D Doppler, Color Flow transthoracic echocardiogram. Exam performed portable in ICU/CCU. Left Ventricle Normal left ventricle. The estimated ejection fraction is 55-60 %. Right Ventricle Normal right ventricle. Normal systolic function. Atria The left atrium is mildly enlarged. Normal right atrium. Bubble contrast study is negative for PFO/ASD. Mitral Valve The mitral valve is structurally normal. No prolapse or stenosis seen. Tricuspid Valve Normal tricuspid valve. Aortic Valve Trisinus/trileaflet aortic valve. Pulmonic Valve The pulmonic valve is not well visualized. Great Vessels Normal aortic root. Pericardium/Pleural No pericardial effusion. Medication Performed a rapid injection of agitated mix of 9 cc saline and 1cc air to assess for atrial septal defect. MMode/2D Measurements & Calculations LVIDd: 4.5 cm IVSd: 1.2 cm Ao root diam: 3.4 cm LVIDs: 2.9 cm LVPWd: 1.3 cm LA dimension: 4.6 cm RVDd: 3.2 cm FS: 35.8 % LAV(MOD-bp): 84.9 ml LVAd ap4: 20.5 cm2 SV(MOD-sp4): 32.7 ml LAV(MOD-bp) Indexed: 44.0 ml/m2 LVLd ap4: 6.0 cm LAV(MOD-sp2): 94.1 ml EDV(MOD-sp4): 60.2 ml LAV(MOD-sp4): 75.1 ml EDV(sp4-el): 59.1 ml LVAs ap4: 13.0 cm2 LVLs ap4: 5.2 cm ESV(MOD-sp4): 27.5 ml ESV(sp4-el): 27.2 ml EF(MOD-sp4): 54.4 % EF(sp4-el): 53.9 % SV(sp4-el): 31.9 ml LA A4 area: 25.0 cm2 RA A4 area: 21.7 cm2 TAPSE: 1.5 cm Doppler Measurements & Calculations MV E max katy: 125.1 cm/sec MV V2 max: 140.8 cm/sec Ao V2 max: 97.5 cm/sec MV max P.9 mmHg Ao max P.8 mmHg MV V2 mean: 71.7 cm/sec MV mean P.7 mmHg MV V2 VTI: 24.1 cm LV V1 max: 92.2 cm/sec PA V2 max: 87.1 cm/sec LV V1 max P.4 mmHg ECHO/Echo Complete Interpretation Summary The estimated ejection fraction is 55-60 %. Ordering Physician: Lenny Silva Performed By: Tong Dykes RCS
--- NOTE | 2023-11-01 07:25 | PN.HOSP_ITS ---
Reason for Visit Reason for Visit: Left-sided weakness/altered mental status Subjective Subjective Patient is a 68-year-old white female who presented to emergency department [facility] on 10/31/2023 because her noted she was not acting right and had sudden onset left-sided weakness. They are here from [facility] and at about 12:15 PM on the he noticed acute onset left-sided weakness. Upon presentation she was noted to be confused and not able to follow instructions consistently. Per ER documentation symptoms started about 45 minutes prior to arrival and stroke team was called and route. It was reported on arrival that she had a history of A-fib but was taking Coumadin and INR was assessed and she was subtherapeutic at 1.5. 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 CTA of the head and neck showed atherosclerotic changes of the aortic arch and small amount of mediastinal adenopathy. Her initial blood pressure was elevated so she was given labetalol. Initial NIH was 7 and stroke neurologist from [facility] was contacted and recommended giving TNK. Unfortunately, later we did find that she was not taking Coumadin and was actually on Xarelto. She was treated with tenecteplase before knowing that she was actually on Xarelto rather than Coumadin. Vital signs on presentation were temperature of 98.1, heart rate 97, blood pressure 184/98, respiratory rate was 22 and oxygen saturation was 93% on room air. Her CBC was unremarkable. Coags were abnormal with elevated PT/INR/PTT likely related to Xarelto use. Her chemistry panel showed hypokalemia potassium of 3.3 but was otherwise unremarkable except for blood glucose level of 242. We obtained a lipid panel on her total cholesterol 149/LDL 86/HDL 38 and triglycerides were 127. TSH was normal at 0.89. Her UA was unremarkable. Toxicology screen was unremarkable. Overnight patient had an acute worsening in her NIH up from 7-[address] A [address] and CTA were performed through the night. The CT was negative for any acute bleed and findings were unchanged from previous exam and CTA head and neck showed only mild atherosclerotic changes of the head and neck with no LVO. Per her she was admitted to [facility] and had both an outpatient testing performed neurologically for incidental findings found when she had a urinary tract infection but workup was negative at that time. informs us that he suspects her compliance with her medications has been variable. Objective Data Objective Data Vital Signs: Vital Signs Temp Pulse Resp BP Pulse Ox O2 Del Method O2 Flow Rate 98 F 92 19 H 129/64 H 98 Nasal Cannula 2 11/01/23 04:00 11/01/23 07:00 11/01/23 07:00 11/01/23 07:00 11/01/23 07:00 11/01/23 07:00 11/01/23 07:00 Oxygen Flow Rate (L/min) 2 Oxygen Delivery Method Nasal Cannula Weight: 79.8 kg Body Mass Index (BMI) 26.0 Intake & Output: Intake and Output for Last 24 Hours 10/30/23 10/31/23 11/01/23 23:59 23:59 23:59 Intake Total 529.15 / 579.15 1009.17 / 1009.17 Output Total 250 / 250 125 / 125 Balance 279.15 / 329.15 884.17 / 884.17 Lab / Micro Data 11/01/23 03:40 11/01/23 03:40 Labs: Laboratory Results - last 24 hr 10/31/23 13:14: POC Glucose 240 H 10/31/23 13:19: WBC 8.8, RBC 4.82, Hgb 12.8, Hct 40.3, MCV 83.6, MCH 26.6 L, M CHC 31.8 L, RDW Std Deviation 40.7, RDW Coeff of Lacy 13.4, Plt Count 314, MPV 11.3, Immature Gran % (Auto) 0.300, Neut % (Auto) 76.1 H, Lymph % (Auto) 14.3 L, [place] % (Auto) 6.2, Eos % (Auto) 2.5, Baso % (Auto) 0.6, Absolute Neuts (auto) 6.7, Absolute Lymphs (auto) 1.25, Nucleated RBC % 0, PT 15.9 H, INR 1.3, APTT 43.0 H, Sodium 141, Potassium 3.3 L, Chloride 102, Carbon Dioxide 28.0, Anion Gap 11, BUN 13, Creatinine 0.99, Estim Creat Clear Calc 51.98, Est GFR (MDRD) Af Amer 72, Est GFR (MDRD) Non-Af 60, BUN/Creatinine Ratio 13.2, Glucose 242 H, Calcium 9.3, Phosphorus 4.3, Magnesium 1.9, Troponin I High Sens 20 10/31/23 13:55: Urine Color Yellow, Urine Clarity Sl. Cloudy, Urine pH 7.0, Ur Specific [place] 1.010, Urine Protein 500 H, Urine Glucose (UA) 100 H, Urine Ketones Negative, Urine Occult Blood 250 H, Urine Nitrite Negative, Urine Bilirubin Negative, Urine Urobilinogen Normal, Ur Leukocyte Esterase Negative, Urine RBC 25-50 SEEN, Urine WBC 0 SEEN, Ur Squamous Epith Cells 0-5 SEEN, Urine Bacteria 0 SEEN, Urine Mucus 0 SEEN, Urine Opiates Screen NEGATIVE, Urine Methadone Screen NEGATIVE, Ur Barbiturates Screen NEGATIVE, Ur Phencyclidine Scrn NEGATIVE, Ur Amphetamines Screen NEGATIVE, MDMA (Ecstasy) Screen NEGATIVE, U Benzodiazepines Scrn NEGATIVE, Urine Cocaine Screen NEGATIVE, U Cannabinoids Screen NEGATIVE, Ur Drug Screen Comment 10/31/23 20:31: POC Glucose 228 H 11/01/23 03:40: WBC 13.7 H, RBC 4.64, Hgb 12.8, Hct 38.6, MCV 83.2, MCH 27.6, MCHC 33.2, RDW Std Deviation 41.7, RDW Coeff of Lacy 13.8, Plt Count 320, MPV 10.7, Immature Gran % (Auto) 0.500, Neut % (Auto) 86.8 H, Lymph % (Auto) 8.6 L, [place] % (Auto) 3.9, Eos % (Auto) 0.1, Baso % (Auto) 0.1, Absolute Neuts (auto) 11.9 H, Absolute Lymphs (auto) 1.18, Nucleated RBC % 0, Sodium 139, Potassium 3.1 L, Chloride 102, Carbon Dioxide 26.0, Anion Gap 11, BUN 18, Creatinine 1.28 H, Estim Creat Clear Calc 47.84, Est GFR (MDRD) Af Amer 54 L, Est GFR (MDRD) Non-Af 44 L, BUN/Creatinine Ratio 14.1, Glucose 295 H, Calcium 8.5, Triglycerides 127, Cholesterol 149, LDL Cholesterol 86, VLDL Cholesterol 25, HDL Cholesterol 38 L, TSH 0.89 Radiography Diagnostic Testing: Radiology Impression Brain CT 10/31/23 13:00 IMPRESSION: Chronic involutional changes of the brain. Findings there is a old lacunar in the insular cortex of the left temporal lobe and right thalamus N.B. : The above Results were Read Back by Mann Zamora MD to Michael Burgess and understanding confirmed on 10/31/2023 13:16:22 (ET). Electronically Signed: Mann Zamora MD at 13:16 EDT , ADDENDUM: 10/31/23 1323 IMPRESSION: Chronic involutional changes of the brain. Findings there is a old lacunar in the insular cortex of the left temporal lobe and right thalamus N.B. : The above Results were Read Back by Mann Zamora MD to Michael Burgess and understanding confirmed on 10/31/2023 13:16:22 (ET). Electronically Signed: Mann Zamora MD at 13:16 EDT , Chest X-Ray 10/31/23 13:00 IMPRESSION: Borderline cardiomegaly. Findings suggestive of vascular congestion and CHF. Electronically Signed: Mann Zamora MD at 14:47 EDT , Head/Neck CTA 10/31/23 13:00 IMPRESSION: Atherosclerotic changes of the aortic arch. Small mediastinal adenopathy. N.B. : The above Results were Read Back by Mann Zamora MD to Michael Burgess and understanding confirmed on 10/31/2023 13:41:59 (ET). Electronically Signed: Mann Zamora MD at 13:43 EDT , ADDENDUM: 10/31/23 1350 IMPRESSION: Atherosclerotic changes of the aortic arch. Small mediastinal adenopathy. N.B. : The above Results were Read Back by Mann Zamora MD to Michael Burgess and understanding confirmed on 10/31/2023 13:41:59 (ET). Electronically Signed: Mann Zamora MD at 13:43 EDT , Brain CT 10/31/23 14:29 IMPRESSION: Chronic involutional changes of the brain. No acute abnormality is seen. Electronically Signed: Mann Zamora MD at 14:57 EDT , ADDENDUM: 10/31/23 1940 IMPRESSION: undefined Brain CT 10/31/23 20:33 IMPRESSION: No evidence for acute bleed with findings unchanged previous exam. N.B. : The above Results were Read Back by Reyes Patino MD to Patricio García DO, and understanding confirmed on 10/31/2023 21:13:13 (ET). Electronically Signed: Reyes Patino MD at 21:23 EDT , ADDENDUM: 10/31/23 2130 IMPRESSION: No evidence for acute bleed with findings unchanged previous exam. N.B. : The above Results were Read Back by Reyes Patino MD to Patricio García DO, and understanding confirmed on 10/31/2023 21:13:13 (ET). Electronically Signed: Reyes Patino MD at 21:23 EDT , Head/Neck CTA 10/31/23 21:32 IMPRESSION: Mild atherosclerotic changes of the head and neck Electronically Signed: Reyes Patino MD at 22:27 EDT , Rhythm Strip Rhythm Strip: A-fib Rate: 99 Ectopy: None Physical Exam Const no apparent distress, average body habitus and well nourished Constitutional Narrative: Obtunded, white female, lying in bed, at bedside, patient does not appear uncomfortable and does not appear toxic however no meaningful interaction and eyes were closed Orientation / Consciousness: lethargic HEENT head/scalp atraumatic and moist oral mucous membranes Head and Scalp: normocephalic Eyes PERRL and conjunctivae normal Eyes Narrative: No scleral icterus Neck no lymphadenopathy and supple Neck Narrative: Trachea midline, no thyroid enlargement Resp normal respiratory effort, no retractions, no use of accessory muscles and clear to auscultation bilaterally Auscultation: Negative for rales, rhonchi or wheezes Cardio S1 normal heart sound, S2 normal heart sound, no murmurs, no rub and no gallops Cardio Narrative: Irregular irregular rhythm with mild tachycardia GI normal to inspection, nondistended, normoactive bowel sounds, soft to palpation and non-tender Extremity no clubbing, cyanosis or edema Extremity Narrative: Peripheral pulses are 2+ bilaterally Skin no rashes or lesions noted, no wounds, skin turgor normal, no jaundice, no petechiae and no mottling Skin Narrative: Intact with no lesions Neuro Neuro Narrative: Patient fairly obtunded, reacts minimally to sternal rub, does not attempt to blink with threat of left visual field but does with threat to right visual field Sensorium / Orientation: Negative for awake, alert, oriented to person, oriented to place or oriented to time Speech: Negative for speech normal Psych Psych Narrative: Unable to assess Assessment & Plan Assessment/Plan (1) Acute encephalopathy: (2) Acute stroke due to ischemia: (3) A-fib: PLAN: Plan Acute onset left-sided weakness -highly suspect stoke--> NIH on presentation was 7 now at 16 with increased through the night -TNK given yesterday in ED @ 1335 -CT Head x 2 without bleed -CTA head and neck without any LVO -Continue high intensity of statin -Stop Cardene drip and allow for some permissive hypertension -This may be the reason why her NIH is change some as her systolic blood pressures have been in the 120s to 130s -Go post tenecteplase should be less than 160/100 -MRI brain today at 24 hr post TNK -if no bleed will start asa 81 mg daily--> 300 rectally if not able to take p.o. -A1c is pending -Lipid--> total cholesterol was 149/LDL 86/HDL 38/triglycerides 127 -Echocardiogram with bubble study is pending -PT/OT/speech therapy consultation -Case management/social work consultation as patient is likely not going to be able to discharge back to home immediately -Teleneuro consultation is pending Toxic/metabolic encephalopathy -Patient remains quite altered but etiology is quite unclear -Check EEG -Check ammonia level -Check ABG -Blood cultures are pending as patient was recently diagnosed with UTI and had been on Keflex -If unable to take p.o. will place [place] Chronic A-fib -Xarelto on hold -Hold carvedilol -Restart digoxin but will give IV -Monitor on telemetry -echocardiogram is pending HTN/HPL -Antihypertensives on hold -High intensity of statin with home rosuvastatin on hold -As needed labetalol and hydralazine ordered for blood pressure control per stroke guidelines -stop Cardene drip as I believe that her worsening symptoms may be related to her blood pressures being a bit too low and decreased perfusion DM-2 -Hemoglobin A1c is pending -Continue Lantus but continue reduced dose at 20 units subcu 35 units -SSI added at moderate dosing every 6 hours Recurrent UTIs -Transition Keflex to ceftriaxone given difficulty with p.o. status due to mentation DVT prophylaxis -SCDs -start chemoprophylaxis this afternoon if repeat imaging 24 hours out from tenecteplase is unremarkable CODE STATUS -Full code is verified at the time of admission Charges/Coding Visit Charges Inpatient E&M: 68112 Subs Hosp L3
--- NOTE | 2023-11-01 07:59 | NURSING ---
pt doesn't open eyes to any stimuli but works to keep them closed when this RN tries to hold eyelids open. eyes to right for few seconds then begin slow horizontal nystagmus. no verbal response of any kind to any stimuli. pt w/random purposeful mvt rt ext (moves covers, scratches nose etc) and actively resists this RN trying to move rt ext. on left ext only smallest of withdraw in knee and elbow to deep pain.
[2023-11-01 08:08] LABS: Hemoglobin A1c 10.9 % (3.8-5.6)
[2023-11-01] MEDS: Lactated Ringers 500 ML 999 ML IV (08:10)
--- NOTE | 2023-11-01 08:54 | STROKE.CONS ---
Assessment and Plan: Stroke Assessment/Plan CR MICHAELS is a 68 F with a history of AFib who presents for evaluation of as she was not acting right and had sudden onset left-sided weakness. Neurological examination shows she is letharic, barely opens her eyes, left facial assymetry, mild movement on right side and weaker one left side. Neuroimaging shows CT: Small lacunae in the insular cortex of the left temporal lobe. Lacuna in the right thalamus.CTA: negative for LVO. S/p TNK. R/o stroke. in addition has encephalopathy from UTI Plan 1. MRI Brain 2. CT at 24 hours f MRI not done. If no bleed can start ASA 3. stroke w/up ECHO, FLP, HbA1C 4. Consider EEG after MRI Brain Thanks for consult. I spent 50 minutes in management of this patient. HPI Consult Data Date of Consult: 11/01/23 HPI Narrative HPI Narrative: CR MICHAELS, is a 68 F who presents to emergency department [facility] on 10/31/2023 because her noted she was not acting right and had sudden onset left-sided weakness. They are here from [facility] and at about 12:15 PM on the he noticed acute onset left-sided weakness. Upon presentation she was noted to be confused and not able to follow instructions consistently. Per ER documentation symptoms started about 45 minutes prior to arrival and stroke team was called and route. It was reported on arrival that she had a history of A-fib but was taking Coumadin and INR was assessed and she was subtherapeutic at 1.5. 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 CTA of the head and neck showed atherosclerotic changes of the aortic arch and small amount of mediastinal adenopathy. Her initial blood pressure was elevated so she was given labetalol. Initial NIH was 7 and stroke neurologist from [facility] was contacted and recommended giving TNK. Unfortunately, later we did find that she was not taking Coumadin and was actually on Xarelto. She was treated with tenecteplase before knowing that she was actually on Xarelto rather than Coumadin.blood glucose level of 242. We obtained a lipid panel on her total cholesterol 7149/LDL 86/HDL 38 and triglycerides were 127. TSH was normal at 0.89. Her UA was unremarkable. Toxicology screen was unremarkable. Overnight patient had an acute worsening in her NIH up from 7-[address] A stat CT and CTA were performed through the night. The CT was negative for any acute bleed and findings were unchanged from previous exam and CTA head and neck showed only mild atherosclerotic changes of the head and neck with no LVO. She also has UTI and [facility] Medical History Diabetes mellitus Home Medications ?Medication ?Instructions ?Recorded ?Last Taken ?Type biotin 5,000 mcg sublingual tablet 5,000 mcg sublingual DAILY 10/31/23 10/31/23 History carvedilol 25 mg tablet 50 mg PO BID 10/31/23 10/31/23 History cephalexin 250 mg capsule 500 mg PO DAILY 10/31/23 10/31/23 History cyclosporine 0.05 % eye drops in a 1 drp EACH EYE Q12H 10/31/23 Unknown History dropperette (Restasis) digoxin 250 mcg (0.25 mg) tablet 250 mcg PO DAILY 10/31/23 10/31/23 History (Digitek) estradiol 0.01% (0.1 mg/gram) 2 g vaginal MOWEFR 10/31/23 Unknown History vaginal cream (Estrace) furosemide 20 mg tablet 20 mg PO DAILY 10/31/23 10/31/23 History insulin glargine 100 unit/mL (3 35 unit subcut QPM 10/31/23 10/30/23 History mL) subcutaneous pen (Lantus Solostar U-100 Insulin) insulin lispro 100 unit/mL 1 unit subcut TID 10/31/23 10/31/23 History subcutaneous pen (Humalog KwikPen (U-100) Insulin) irbesartan 300 mg tablet 300 mg PO DAILY 10/31/23 10/31/23 History rivaroxaban 20 mg tablet (Xarelto) 20 mg PO DAILY 10/31/23 10/31/23 History rosuvastatin 5 mg tablet 5 mg PO DAILY 10/31/23 10/31/23 History tobramycin 0.3 % eye drops 1 drp EACH EYE Q8H 10/31/23 Unknown History Allergy/AdvReac Type Severity Reaction Status Date / Time morphine Allergy Mild PT UNSURE Verified 10/31/23 13:34 OF REACTION Social History Smoking Status: Never smoker Vital Signs Vital Signs Vital Signs: 10/31/23 13:00 10/31/23 13:00 10/31/23 13:09 Temperature 98.1 F Temperature Source Oral Pulse Rate 96 97 Pulse Strength Respiratory Rate 18 22 H Respiratory Effort Respiratory Depth Respiratory Pattern Blood Pressure 184/98 H 184/98 H Blood Pressure Mean 126 126 Blood Pressure Source Blood Pressure Position Blood Pressure Location Pulse Ox 94 98 93 Oxygen Delivery Method Room Air Nasal Cannula Room Air Oxygen Flow Rate (L/min) 3 10/31/23 13:21 10/31/23 13:30 10/31/23 13:42 Temperature 98.2 F Temperature Source Axillary Pulse Rate 90 110 H Pulse Strength Respiratory Rate 18 21 H Respiratory Effort Respiratory Depth Respiratory Pattern Blood Pressure 175/107 H 231/131 H 175/107 H Blood Pressure Mean 129 164 Blood Pressure Source Blood Pressure Position Blood Pressure Location Pulse Ox 93 98 Oxygen Delivery Method Room Air Nasal Cannula Oxygen Flow Rate (L/min) 2 3 10/31/23 13:58 10/31/23 14:00 10/31/23 14:00 Temperature Temperature Source Pulse Rate 87 94 102 H Pulse Strength Respiratory Rate 24 H 24 H 22 H Respiratory Effort Respiratory Depth Respiratory Pattern Blood Pressure 213/102 H 213/102 H 179/108 H Blood Pressure Mean 139 139 131 Blood Pressure Source Blood Pressure Position Blood Pressure Location Pulse Ox 98 99 99 Oxygen Delivery Method Nasal Cannula Nasal Cannula Nasal Cannula Oxygen Flow Rate (L/min) 3 3 3 10/31/23 14:21 10/31/23 14:30 10/31/23 15:00 Temperature 98.0 F 97.9 F Temperature Source Axillary Axillary Pulse Rate 101 H 117 H 111 H Pulse Strength Respiratory Rate 15 21 H 18 Respiratory Effort Respiratory Depth Respiratory Pattern Blood Pressure 176/111 H 164/117 H 160/101 H Blood Pressure Mean 132 132 120 Blood Pressure Source Blood Pressure Position Blood Pressure Location Pulse Ox 99 95 97 Oxygen Delivery Method Nasal Cannula Nasal Cannula Nasal Cannula Oxygen Flow Rate (L/min) 3 3 3 10/31/23 15:00 10/31/23 15:30 10/31/23 16:00 Temperature 97.9 F 97.7 F L Temperature Source Axillary Axillary Pulse Rate 106 H 110 H 109 H Pulse Strength Respiratory Rate 18 18 16 Respiratory Effort Respiratory Depth Respiratory Pattern Blood Pressure 160/101 H 173/105 H 172/103 H Blood Pressure Mean 120 127 126 Blood Pressure Source Blood Pressure Position Blood Pressure Location Pulse Ox 98 98 97 Oxygen Delivery Method Nasal Cannula Nasal Cannula Nasal Cannula Oxygen Flow Rate (L/min) 3 3 3 10/31/23 16:19 10/31/23 16:40 10/31/23 17:10 Temperature 98.1 F Temperature Source Pulse Rate 109 H 117 H 119 H Pulse Strength Respiratory Rate 16 22 H 20 H Respiratory Effort Respiratory Depth Respiratory Pattern Blood Pressure 175/109 H 213/145 H 206/136 H Blood Pressure Mean 131 167 159 Blood Pressure Source Monitor Blood Pressure Position Semi-Fowlers Blood Pressure Location Left Arm Pulse Ox 97 95 92 Oxygen Delivery Method Room Air Nasal Cannula Oxygen Flow Rate (L/min) 2 10/31/23 17:10 10/31/23 17:25 10/31/23 17:39 Temperature Temperature Source Pulse Rate 119 H 118 H Pulse Strength Respiratory Rate 20 H Respiratory Effort Respiratory Depth Respiratory Pattern Blood Pressure 206/136 H 182/104 H Blood Pressure Mean 159 130 Blood Pressure Source Monitor Monitor Blood Pressure Position Semi-Fowlers Semi-Fowlers Blood Pressure Location Left Arm Left Arm Pulse Ox 98 97 Oxygen Delivery Method Nasal Cannula Nasal Cannula Oxygen Flow Rate (L/min) 2 2 10/31/23 17:40 10/31/23 17:40 10/31/23 17:55 Temperature Temperature Source Pulse Rate 118 H 115 H 116 H Pulse Strength Respiratory Rate 20 H 20 H Respiratory Effort Respiratory Depth Respiratory Pattern Blood Pressure 178/103 H 145/75 H 135/75 H Blood Pressure Mean 128 98 95 Blood Pressure Source Monitor Monitor Monitor Blood Pressure Position Semi-Fowlers Semi-Fowlers Blood Pressure Location Left Arm Left Arm Pulse Ox 92 94 Oxygen Delivery Method Nasal Cannula Nasal Cannula Oxygen Flow Rate (L/min) 2 2 10/31/23 18:00 10/31/23 18:10 10/31/23 18:10 Temperature Temperature Source Pulse Rate 116 H 123 H Pulse Strength Respiratory Rate 18 Respiratory Effort Respiratory Depth Respiratory Pattern Blood Pressure 119/82 H 140/85 H Blood Pressure Mean 94 103 Blood Pressure Source Monitor Blood Pressure Position Semi-Fowlers Blood Pressure Location Left Arm Pulse Ox 92 Oxygen Delivery Method Nasal Cannula Nasal Cannula Oxygen Flow Rate (L/min) 2 2 10/31/23 18:20 10/31/23 18:30 10/31/23 18:40 Temperature Temperature Source Pulse Rate 120 H 110 H 129 H Pulse Strength Respiratory Rate Respiratory Effort Respiratory Depth Respiratory Pattern Blood Pressure 140/85 H 137/86 H 137/86 H Blood Pressure Mean 103 103 103 Blood Pressure Source Monitor Monitor Monitor Blood Pressure Position Supine Semi-Fowlers Blood Pressure Location Left Arm Left Arm Pulse Ox Oxygen Delivery Method Oxygen Flow Rate (L/min) 10/31/23 18:45 10/31/23 19:00 10/31/23 19:00 Temperature Temperature Source Pulse Rate 99 111 H 111 H Pulse Strength Respiratory Rate 25 H Respiratory Effort Respiratory Depth Respiratory Pattern Blood Pressure 132/68 H 130/64 H 130/64 H Blood Pressure Mean 89 86 86 Blood Pressure Source Monitor Monitor Blood Pressure Position Supine Semi-Fowlers Blood Pressure Location Left Arm Left Forearm Pulse Ox 92 Oxygen Delivery Method Nasal Cannula Oxygen Flow Rate (L/min) 2 10/31/23 19:15 10/31/23 19:28 10/31/23 19:30 Temperature Temperature Source Pulse Rate 114 H 117 H 111 H Pulse Strength Respiratory Rate 19 H Respiratory Effort Respiratory Depth Respiratory Pattern Blood Pressure 131/74 H 128/67 H Blood Pressure Mean 93 87 Blood Pressure Source Monitor Blood Pressure Position Semi-Fowlers Blood Pressure Location Left Arm Pulse Ox 93 Oxygen Delivery Method Nasal Cannula Oxygen Flow Rate (L/min) 2 10/31/23 19:30 10/31/23 19:45 10/31/23 20:00 Temperature Temperature Source Pulse Rate 111 H 116 H 116 H Pulse Strength Respiratory Rate 25 H Respiratory Effort Respiratory Depth Respiratory Pattern Blood Pressure 128/67 H 139/80 H Blood Pressure Mean 87 99 Blood Pressure Source Monitor Blood Pressure Position Semi-Fowlers Blood Pressure Location Left Arm Pulse Ox 96 Oxygen Delivery Method Nasal Cannula Oxygen Flow Rate (L/min) 2 10/31/23 20:00 10/31/23 20:00 10/31/23 20:00 Temperature 98.4 F Temperature Source Temporal Pulse Rate 116 H 116 H Pulse Strength Respiratory Rate 25 H 25 H Respiratory Effort Normal Non-Labored Respiratory Depth Normal Respiratory Pattern Tachypnea Blood Pressure 139/80 H 130/89 H Blood Pressure Mean 99 102 Blood Pressure Source Blood Pressure Position Blood Pressure Location Pulse Ox 96 96 Oxygen Delivery Method Nasal Cannula Nasal Cannula Oxygen Flow Rate (L/min) 2 2 10/31/23 20:30 10/31/23 21:00 10/31/23 21:00 Temperature Temperature Source Pulse Rate 118 H 109 H 109 H Pulse Strength Respiratory Rate 18 16 Respiratory Effort Respiratory Depth Respiratory Pattern Blood Pressure 134/68 H 131/82 H 131/82 H Blood Pressure Mean 90 98 98 Blood Pressure Source Monitor Monitor Blood Pressure Position Semi-Fowlers Semi-Fowlers Blood Pressure Location Left Arm Left Arm Pulse Ox 94 94 Oxygen Delivery Method Nasal Cannula Nasal Cannula Oxygen Flow Rate (L/min) 2 2 10/31/23 21:15 10/31/23 21:30 10/31/23 21:40 Temperature Temperature Source Pulse Rate 114 H 119 H Pulse Strength Respiratory Rate 22 H Respiratory Effort Respiratory Depth Respiratory Pattern Blood Pressure 150/87 H 153/89 H 153/89 H Blood Pressure Mean 108 110 110 Blood Pressure Source Monitor Blood Pressure Position Semi-Fowlers Blood Pressure Location Left Arm Pulse Ox 95 Oxygen Delivery Method Nasal Cannula Oxygen Flow Rate (L/min) 2 10/31/23 21:45 10/31/23 22:00 10/31/23 22:00 Temperature Temperature Source Pulse Rate 123 H Pulse Strength Normal (2+) Respiratory Rate 18 Respiratory Effort Respiratory Depth Respiratory Pattern Blood Pressure 172/92 H 142/81 H Blood Pressure Mean 118 101 Blood Pressure Source Monitor Blood Pressure Position Semi-Fowlers Blood Pressure Location Left Arm Pulse Ox 95 Oxygen Delivery Method Nasal Cannula Oxygen Flow Rate (L/min) 2 10/31/23 22:00 10/31/23 22:15 10/31/23 22:30 Temperature Temperature Source Pulse Rate 123 H 104 H Pulse Strength Respiratory Rate Respiratory Effort Respiratory Depth Respiratory Pattern Blood Pressure 142/81 H 146/65 H 137/89 H Blood Pressure Mean 101 92 105 Blood Pressure Source Blood Pressure Position Blood Pressure Location Pulse Ox Oxygen Delivery Method Oxygen Flow Rate (L/min) 10/31/23 22:45 10/31/23 23:00 10/31/23 23:00 Temperature Temperature Source Pulse Rate 124 H 108 H 102 H Pulse Strength Respiratory Rate 19 H Respiratory Effort Respiratory Depth Respiratory Pattern Blood Pressure 138/61 H 137/56 H 137/56 H Blood Pressure Mean 86 83 83 Blood Pressure Source Monitor Blood Pressure Position Semi-Fowlers Blood Pressure Location Left Arm Pulse Ox 96 Oxygen Delivery Method Nasal Cannula Oxygen Flow Rate (L/min) 2 10/31/23 23:15 10/31/23 23:25 11/01/23 00:00 Temperature 98.9 F Temperature Source Temporal Pulse Rate 110 H 98 Pulse Strength Respiratory Rate 19 H Respiratory Effort Normal Non-Labored Respiratory Depth Normal Respiratory Pattern Tachypnea Blood Pressure 125/61 H Blood Pressure Mean 82 Blood Pressure Source Monitor Blood Pressure Position Semi-Fowlers Blood Pressure Location Left Arm Pulse Ox 97 Oxygen Delivery Method Nasal Cannula Nasal Cannula Oxygen Flow Rate (L/min) 2 11/01/23 00:00 11/01/23 00:00 11/01/23 01:00 Temperature Temperature Source Pulse Rate 94 Pulse Strength Respiratory Rate 19 H Respiratory Effort Respiratory Depth Respiratory Pattern Blood Pressure 125/61 H 125/61 H 129/66 H Blood Pressure Mean 82 82 87 Blood Pressure Source Monitor Blood Pressure Position Semi-Fowlers Blood Pressure Location Left Arm Pulse Ox 97 Oxygen Delivery Method Nasal Cannula Oxygen Flow Rate (L/min) 2 11/01/23 01:00 11/01/23 02:00 11/01/23 02:00 Temperature 97.8 F Temperature Source Temporal Pulse Rate 109 H 94 94 Pulse Strength Respiratory Rate 20 H 18 18 Respiratory Effort Respiratory Depth Respiratory Pattern Blood Pressure 129/66 H 140/54 H 140/54 H Blood Pressure Mean 87 82 82 Blood Pressure Source Monitor Monitor Blood Pressure Position Semi-Fowlers Semi-Fowlers Blood Pressure Location Left Arm Left Arm Pulse Ox 97 97 97 Oxygen Delivery Method Nasal Cannula Nasal Cannula Nasal Cannula Oxygen Flow Rate (L/min) 2 2 2 11/01/23 02:00 11/01/23 03:00 11/01/23 03:00 Temperature Temperature Source Pulse Rate 94 107 H 107 H Pulse Strength Respiratory Rate 18 Respiratory Effort Respiratory Depth Respiratory Pattern Blood Pressure 140/54 H 133/58 H 133/58 H Blood Pressure Mean 82 83 83 Blood Pressure Source Monitor Monitor Blood Pressure Position Semi-Fowlers Blood Pressure Location Left Arm Pulse Ox 96 Oxygen Delivery Method Nasal Cannula Oxygen Flow Rate (L/min) 2 11/01/23 03:30 11/01/23 03:46 11/01/23 04:00 Temperature 98 F Temperature Source Temporal Pulse Rate 87 100 Pulse Strength Respiratory Rate 19 H Respiratory Effort Normal Non-Labored Respiratory Depth Normal Respiratory Pattern Normal Blood Pressure 136/81 H Blood Pressure Mean 99 Blood Pressure Source Monitor Blood Pressure Position Semi-Fowlers Blood Pressure Location Left Arm Pulse Ox 98 Oxygen Delivery Method Nasal Cannula Nasal Cannula Oxygen Flow Rate (L/min) 2 11/01/23 04:00 11/01/23 05:00 11/01/23 05:00 Temperature Temperature Source Pulse Rate 100 87 87 Pulse Strength Respiratory Rate 20 H Respiratory Effort Respiratory Depth Respiratory Pattern Blood Pressure 136/81 H 133/60 H 133/60 H Blood Pressure Mean 99 84 84 Blood Pressure Source Monitor Monitor Monitor Blood Pressure Position Semi-Fowlers Blood Pressure Location Left Arm Pulse Ox 97 Oxygen Delivery Method Nasal Cannula Oxygen Flow Rate (L/min) 2 11/01/23 06:00 11/01/23 06:00 11/01/23 07:00 Temperature Temperature Source Pulse Rate 100 99 93 Pulse Strength Respiratory Rate 18 19 H Respiratory Effort Respiratory Depth Respiratory Pattern Blood Pressure 132/57 H 132/57 H 129/64 H Blood Pressure Mean 82 82 85 Blood Pressure Source Monitor Monitor Monitor Blood Pressure Position Semi-Fowlers Semi-Fowlers Blood Pressure Location Left Arm Left Arm Pulse Ox 98 98 Oxygen Delivery Method Nasal Cannula Nasal Cannula Oxygen Flow Rate (L/min) 2 2 11/01/23 07:00 11/01/23 07:26 11/01/23 08:00 Temperature Temperature Source Pulse Rate 92 108 H 94 Pulse Strength Respiratory Rate 19 H 18 Respiratory Effort Respiratory Depth Respiratory Pattern Blood Pressure 129/64 H 145/63 H 138/75 H Blood Pressure Mean 85 90 96 Blood Pressure Source Monitor Monitor Monitor Blood Pressure Position Semi-Fowlers Semi-Fowlers Blood Pressure Location Left Arm Left Arm Pulse Ox 97 99 Oxygen Delivery Method Nasal Cannula Nasal Cannula Oxygen Flow Rate (L/min) 2 2 Weight Weight: 79.8 kg Body Mass Index (BMI) 26.0 EEG Results Procedure Details EEG Procedure Details: CR MICHAELS is a 68 year old F with a past medical history of , who presents for evaluation of Electroencephalogram on DATE at TIME NIHSS NIHSS Nursing Documentation NIHSS Nursing Documentation: Thrombolytic: Vital Signs & NIHSS Start: 10/31/23 16:22 Text: Assess and document vital signs and NIHSS Status: Active within 15 minutes prior to Tenecteplase administration Freq: [id number] Protocol: Activity Type Activity Date Activity User E-sign Co-sign Detail Recorded Client Recorded Date Recorded By Document 11/01/23 08:00 [facility] [id number] 11/01/23 08:39 [facility] 11/01/23 08:00 Vital Signs [Pulse] -Pulse Rate (60-100) 94 -Pulse Location Monitor [Respirations] -Respiratory Rate (12-18) 18 -Respiratory rate source Monitor -Pulse Oximetry 99 -Oxygen Delivery Method Nasal Cannula -O2 L/MIN 2 [Blood Pressure] -Blood Pressure (90/60-120/80) 138/75 H -Blood Pressure Mean 96 -Source Monitor -Position Semi-Fowlers -Blood Pressure Location Left Arm -Is the SBP > or = 180 No -Is the DBP > or = 105 No NIH Stroke Scale [NIHSS] A score of 0 is normal or asymptomatic . Total possible score is 42. Inpatient: RN or Physician to activate a stroke alert for onset of new stroke symptoms or with NIHSS increase >/= 3 points. Following change in neurological status, NIHSS will be performed per physician order or more frequently PRN. -1a. Level of Consciousness Not alert; -1b. LOC Questions Answers neither question correctly. -1c. LOC Commands Performs neither task correctly. -2. Best Gaze Forced deviation, -3. Visual No visual loss -4. Facial Palsy Partial paralysis ( total or near- total paralysis of lower face) -5a. Left Arm UN=Amputation or joint fusion , explain: -'UN' explanation does not follow -5b. Right Arm UN=Amputation or joint fusion , explain: -'UN' explanation does not follow -6a. Left Leg UN= Amputation or joint fusion , explain: -'UN' explanation does not follow -6b. Right Leg UN= Amputation or joint fusion , explain: -'UN' explanation does not follow -7. Limb Ataxia Absent -8. Sensory Severe to total sensory loss; -9. Best Language Mute, global aphasia; -10. Dysarthria UN=Intubated or other physical barrier, explain: -'UN' explanation does not speak -11. Extinction and Inattention Profound adalgisa- inattention or extinction to more than one modality; -Total 16 Query Text:A score of 0 is normal or asymptomatic. Total possible score is 42 . ED: Notify Physician for NIHSS increase by > / = 3 points. Inpatient: RN or Physician to activate a stroke alert for NIHSS increase of > / = 3 points. NIHSS 1a. Level of Consciousness: Not alert; 1b. LOC Questions: Answers neither question correctly. 1c. LOC Commands: Performs neither task correctly. 2. Best Gaze: Normal 3. Visual: No visual loss 4. Facial Palsy: Minor paralysis (flattened nasolabial fold, asymmetry on smiling) 5a. Left Arm: No movement 5b. Right Arm: No effort against gravity; arm falls 6a. Left Leg: No effort against gravity; leg falls to bed immediately 6b. Right Leg: No effort against gravity; leg falls to bed immediately 7. Limb Ataxia: Absent 8. Sensory: Normal; no sensory loss 9. Best Language: Mute, global aphasia; 10. Dysarthria: Severe dysarthria; 11. Extinction and Inattention: No abnormality Total: 24 Physical Exam Neuro Neuro Narrative: Somnolent Bare;ly opens eyes Not following commands Trace movement on right side more than left side to pain Lab / Micro Data 11/01/23 03:40 11/01/23 03:40 Labs: Laboratory Results - last 24 hr 10/31/23 13:14: POC Glucose 240 H 10/31/23 13:19: WBC 8.8, RBC 4.82, Hgb 12.8, Hct 40.3, MCV 83.6, MCH 26.6 L, MCHC 31.8 L, RDW Std Deviation 40.7, RDW Coeff of Lacy 13.4, Plt Count 314, MPV 11.3, Immature Gran % (Auto) 0.300, Neut % (Auto) 76.1 H, Lymph % (Auto) 14.3 L, [place] % (Auto) 6.2, Eos % (Auto) 2.5, Baso % (Auto) 0.6, Absolute Neuts (auto) 6.7, Absolute Lymphs (auto) 1.25, Nucleated RBC % 0, PT 15.9 H, INR 1.3, APTT 43.0 H, Sodium 141, Potassium 3.3 L, Chloride 102, Carbon Dioxide 28.0, Anion Gap 11, BUN 13, Creatinine 0.99, Estim Creat Clear Calc 51.98, Est GFR (MDRD) Af Amer 72, Est GFR (MDRD) Non-Af 60, BUN/Creatinine Ratio 13.2, Glucose 242 H, Calcium 9.3, Phosphorus 4.3, Magnesium 1.9, Troponin I High Sens 20 10/31/23 13:55: Urine Color Yellow, Urine Clarity Sl. Cloudy, Urine pH 7.0, Ur Specific [place] 1.010, Urine Protein 500 H, Urine Glucose (UA) 100 H, Urine Ketones Negative, Urine Occult Blood 250 H, Urine Nitrite Negative, Urine Bilirubin Negative, Urine Urobilinogen Normal, Ur Leukocyte Esterase Negative, Urine RBC 25-50 SEEN, Urine WBC 0 SEEN, Ur Squamous Epith Cells 0-5 SEEN, Urine Bacteria 0 SEEN, Urine Mucus 0 SEEN, Urine Opiates Screen NEGATIVE, Urine Methadone Screen NEGATIVE, Ur Barbiturates Screen NEGATIVE, Ur Phencyclidine Scrn NEGATIVE, Ur Amphetamines Screen NEGATIVE, MDMA (Ecstasy) Screen NEGATIVE, U Benzodiazepines Scrn NEGATIVE, Urine Cocaine Screen NEGATIVE, U Cannabinoids Screen NEGATIVE, Ur Drug Screen Comment 10/31/23 20:31: POC Glucose 228 H 11/01/23 03:40: WBC 13.7 H, RBC 4.64, Hgb 12.8, Hct 38.6, MCV 83.2, MCH 27.6, MCHC 33.2, RDW Std Deviation 41.7, RDW Coeff of Lacy 13.8, Plt Count 320, MPV 10.7, Immature Gran % (Auto) 0.500, Neut % (Auto) 86.8 H, Lymph % (Auto) 8.6 L, [place] % (Auto) 3.9, Eos % (Auto) 0.1, Baso % (Auto) 0.1, Absolute Neuts (auto) 11.9 H, Absolute Lymphs (auto) 1.18, Nucleated RBC % 0, Sodium 139, Potassium 3.1 L, Chloride 102, Carbon Dioxide 26.0, Anion Gap 11, BUN 18, Creatinine 1.28 H, Estim Creat Clear Calc 47.84, Est GFR (MDRD) Af Amer 54 L, Est GFR (MDRD) Non-Af 44 L, BUN/Creatinine Ratio 14.1, Glucose 295 H, Hemoglobin A1c 10.9 H, Calcium 8.5, Triglycerides 127, Cholesterol 149, LDL Cholesterol 86, VLDL Cholesterol 25, HDL Cholesterol 38 L, TSH 0.89 Rhythm Strip Rhythm Strip: A-fib Rate: 99 Ectopy: None Imaging Radiology Impression Brain CT 10/31/23 13:00 IMPRESSION: Chronic involutional changes of the brain. Findings there is a old lacunar in the insular cortex of the left temporal lobe and right thalamus N.B. : The above Results were Read Back by Mann Zamora MD to Michael Burgess and understanding confirmed on 10/31/2023 13:16:22 (ET). Electronically Signed: Mann Zamora MD at 13:16 EDT , ADDENDUM: 10/31/23 1323 IMPRESSION: Chronic involutional changes of the brain. Findings there is a old lacunar in the insular cortex of the left temporal lobe and right thalamus N.B. : The above Results were Read Back by Mann Zamora MD to Michael Burgess and understanding confirmed on 10/31/2023 13:16:22 (ET). Electronically Signed: Mann Zamora MD at 13:16 EDT , Chest X-Ray 10/31/23 13:00 IMPRESSION: Borderline cardiomegaly. Findings suggestive of vascular congestion and CHF. Electronically Signed: Mann Zamora MD at 14:47 EDT , Head/Neck CTA 10/31/23 13:00 IMPRESSION: Atherosclerotic changes of the aortic arch. Small mediastinal adenopathy. N.B. : The above Results were Read Back by Mann Zamora MD to Michael Burgess and understanding confirmed on 10/31/2023 13:41:59 (ET). Electronically Signed: Mann Zamora MD at 13:43 EDT , ADDENDUM: 10/31/23 1350 IMPRESSION: Atherosclerotic changes of the aortic arch. Small mediastinal adenopathy. N.B. : The above Results were Read Back by Mann Zamora MD to Michael Burgess and understanding confirmed on 10/31/2023 13:41:59 (ET). Electronically Signed: Mann Zamora MD at 13:43 EDT , Brain CT 10/31/23 14:29 IMPRESSION: Chronic involutional changes of the brain. No acute abnormality is seen. Electronically Signed: Mann Zamora MD at 14:57 EDT , ADDENDUM: 10/31/23 1940 IMPRESSION: undefined Brain CT 10/31/23 20:33 IMPRESSION: No evidence for acute bleed with findings unchanged previous exam. N.B. : The above Results were Read Back by Reyes Patino MD to Patricio García DO, and understanding confirmed on 10/31/2023 21:13:13 (ET). Electronically Signed: Reyes Patino MD at 21:23 EDT , ADDENDUM: 10/31/23 2130 IMPRESSION: No evidence for acute bleed with findings unchanged previous exam. N.B. : The above Results were Read Back by Reyes Patino MD to Patricio García DO, and understanding confirmed on 10/31/2023 21:13:13 (ET). Electronically Signed: Reyes Patino MD at 21:23 EDT , Head/Neck CTA 10/31/23 21:32 IMPRESSION: Mild atherosclerotic changes of the head and neck Electronically Signed: Reyes Patino MD at 22:27 EDT Reading Location ID and State: [facility] / [place] Tel , Service support , Active Medications Active Medications Active Medications: Current Medications Generic Name Dose Route Start Last Admin Trade Name Freq PRN Reason Stop Dose Admin Acetaminophen 650 mg 10/31/23 16:22 Acetaminophen 325 Mg Tablet PO Q4H PRN PRN Pain 1-10 Or Fever >99.6 Atorvastatin Calcium 80 mg 10/31/23 22:00 10/31/23 21:52 Atorvastatin Calcium 80 Mg Tablet PO Not Given QHS CRISS Cephalexin 500 mg 11/01/23 10:00 Cephalexin 500 Mg Capsule PO 11/04/23 10:01 DAILY CRISS Cephalexin 250 mg 11/05/23 10:00 Cephalexin 250 Mg Capsule PO DAILY CRISS Diphenhydramine HCl 50 mg 10/31/23 16:22 Diphenhydramine 50 Mg/Ml Syringe IV X1 PRN Allergic Reaction Epinephrine HCl 0.3 mg 10/31/23 16:22 Epi Pen (Equiv) 0.3 Mg Syringe IM 11/01/23 15:58 X1 PRN Alleric Reaction Glycerin/Hypromellose/Polyethylene 1 - 2 drp 10/31/23 16:30 Glycerin/Hypromellose/[id number] 15 Ml Bottle EACH EYE Q2H PRN DRY EYES Hydralazine HCl 5 mg 11/01/23 08:02 Hydralazine 20 Mg/Ml Vial IV 11/02/23 08:02 Q30M PRN maintain BP parameters with HR <60 Famotidine 20 mg/ Sodium 10 mls @ 300 mls/hr 10/31/23 16:22 Chloride IV X1 PRN Allergic Reaction Sodium Chloride 1,000 mls @ 75 mls/hr 10/31/23 16:22 11/01/23 05:53 IV 75 mls/hr .[id number] CRISS Administration Lactated Ringer's 500 mls @ 999 mls/hr 11/01/23 08:00 IV 11/01/23 08:30 .Q31M CRISS Insulin Glargine 20 unit 10/31/23 21:00 10/31/23 21:52 Insulin Glargine-Yfgn 100 Unit/Ml Pen SC 10 unit QPM CRISS Administration Insulin Human Lispro 0 unit 11/01/23 12:00 Insulin Lispro 100 Unit/Ml Insuln.Pen SC Q6 [facility] Protocol Labetalol HCl 10 - 20 mg 11/01/23 08:02 Labetalol (Compound) 20 Mg/4 Ml Syringe IV 11/02/23 08:02 Q10M PRN PRN maintain BP parameters with HR >/=60 Methylprednisolone 125 mg 10/31/23 16:22 Methylprednisolone 125 Mg/2 Ml Vial IV X1 PRN Allergic Reaction Nitroglycerin 0.4 mg 10/31/23 16:22 Nitroglycerin (Inpatient Use) 0.4 Mg Tab.Subl SL Q5M PRN CARDIAC/CHEST PAIN Pantoprazole Sodium 40 mg 11/01/23 10:00 Pantoprazole Sodium 40 Mg Tablet PO DAILY [facility] Prochlorperazine Edisylate 5 mg 10/31/23 16:22 Prochlorperazine 10 Mg/2 Ml Vial IV Q4H PRN PRN Breakthrough Nausea/Vomiting Senna/Docusate Sodium 2 tablet 10/31/23 16:22 Senna/Docusate Sodium 1 Tablet PO BID PRN Constipation Sodium Chloride 10 ml 10/31/23 16:22 0.9% Saline Lock 10 Ml Syringe IV UD PRN Before/After Tenecteplase Administration Sodium Chloride 10 - 40 ml 10/31/23 17:06 11/01/23 05:08 0.9% Saline Lock 10 Ml Syringe IV 10 ml UD PRN Administration SALINE FLUSH
[2023-11-01 09:21] LABS: Allen Test Positive; Base Excess 3 mmol/L (-2 to +2); Bicarbonate 26.6 mmol/L (22-26); Blood Gas Specimen Type ART; Mode Not entered; O2 Delivery Device Cannula; PO2 96 mmHG (75-100); SITE R Radial; SO2 98 % (95-99); Total Carbon Dioxide 28 mmol/L; pCO2 35.3 mmHg (35-45); pH 7.49 (7.35-7.45)
--- NOTE | 2023-11-01 11:30 | CASEMGMT ---
Addendum entered by Beatris Nicolas 11/01/23 14:03: WALTER COOPER Assessment: Pt at MRI, present in room. WALTER COOPER introduced self and role at [facility], pt voices understanding and consents to assessment. Care providers, pharmacy, and demographics verified/updated. Admitting Dx: stroke s/p TNK PCP:Cat Specialists:Margo, eye dr; Alvina, cardio Preferred Pharmacy: [facility] Retail Insurance: [employer] [facility] Prescription Benefit: yes LNOK: William Perry, Living Arrangements: Pt lives with in a single story home with 1 step to enter. Pt reports pt is I in ADLs typically. Pt and staying at [facility] in [facility] currently with plans to leave on Friday but campsite is held until . Transportation: Pt does not drive. Pt provides transportation. DME:walker- doesn't use. Pt has CGM with sufficient supply of sensors. Pt has sufficient supply of insulin and needles. HHC/SNF: Denies hx of Pt at MRI. Therapy evals pending. WALTER COOPER to meet with pt/ on Friday to discuss further dc plan. Pt states no further concerns/needs. CM to follow. Advised pt to ask CM if any further question/concerns/needs arise, voices understanding. Pt/ Goal: Home pending needs Plan: TBD pending course of hospitalization Beau WATSON CM Original Note: WALTER COOPER into pt room to complete assessment, pt lying in bed with eyes closed and did not open eyes. Spoke with pt nurse who states went [place]ground to check on his dog and will be back shortly. WALTER COOPER to check back to complete assessment.
--- NOTE | 2023-11-01 11:55 | MRI_ITS ---
EXAM: MR HEAD WITHOUT AND WITH INTRAVENOUS CONTRAST CLINICAL INDICATION: R sided weakness/Fever TECHNIQUE: Multiplanar and multisequence MR images of the brain were obtained without and with intravenous contrast. CONTRAST: IV 16cc Clariscan COMPARISON: No relevant prior studies available. FINDINGS: BRAIN AND EXTRA-AXIAL SPACES: No evidence of acute ischemia. Chronic lacunar infarcts noted within the left basal ganglia and right pelvis. 9 mm focus of susceptibility artifact within the right cerebellum likely represents hemosiderin from underlying venous angioma. No acute hemorrhage or mass effect. Prominence of the cortical sulci and ventricles related to volume loss change.. Basilar cisterns are normal. No abnormal contrast enhancement. SELLA: Normal. Normal sella turcica, pituitary gland, infundibular stalk, optic chiasm and hypothalamus. AUDITORY SYSTEM: Normal. The internal auditory canals are patent. BONES/JOINTS: Intact calvarium. SINUSES: Mucosal thickening within the right maxillary sinus. MASTOID AIR CELLS: Unremarkable as visualized. Clear. ORBITS: Unremarkable as visualized. Both globes, extraocular muscles, optic nerves and retrobulbar fat appear unremarkable. VASCULATURE: Unremarkable as visualized. Normal flow voids in the major intracranial circulation. MRI/Brain W/WO Contrast IMPRESSION: No acute intracranial abnormality. Chronic microvascular changes. Electronically Signed: Gregorio Chau MD at 15:59 EDT ,
--- NOTE | 2023-11-01 11:56 | PCM.HOSP.N ---
Hospitalist Note Called as patient now has a rectal temperature of 103 degrees. Will discontinue ceftriaxone and add vancomycin and Zosyn. Ordered LP. Check MRI but get it with and without contrast. Blood cultures already pending. Urine culture added. Check chest x-ray. Check procalcitonin. Check MRSA PCR.
--- NOTE | 2023-11-01 12:00 | RAD_ITS ---
INDICATION: Fever EXAMINATION/TECHNIQUE: X-RAY - XR Chest 1 View COMPARISON: Prior study dated: 10/31/2023 FINDINGS: LINES/DEVICES: None. LUNGS: Continued mild pulmonary venous congestion. No new infiltrate is seen. Lucency in the lateral aspect of the right chest likely due to skinfold. Pneumothorax is doubtful. No evidence of pleural effusions. MEDIASTINUM AND CARDIOVASCULAR STRUCTURES: Cardiac silhouette not enlarged. Central airways and mediastinal contour are unremarkable. BONES AND SOFT TISSUES: Unremarkable. RAD/Chest 1 View (Portable) IMPRESSION: 1. Mild pulmonary venous congestion unchanged. 2. Lucency lateral aspect of right chest likely due to skinfold. Pneumothorax is doubtful. Electronically Signed: Aidan Rosa MD at 14:15 EDT ,
[2023-11-01 12:04] LABS: Bedside Glucose 253 mg/dL (74-106)
[2023-11-01] MEDS: Digoxin 250 MCG/ML Ampul IV (12:14)
[2023-11-01] MEDS: Insulin Lispro 100 UNIT/ML INSULN.PEN SC ×2 (12:18→18:31)
[2023-11-01] MEDS: Potassium Chloride 10mEq/100mL 10 MEQ/100 ML IV.SOLN. 100 MEQ IV BOLUS ×4 (12:18→18:24)
[2023-11-01] MEDS: Acetaminophen 650 MG Suppository RC ×2 (12:59→18:38)
--- NOTE | 2023-11-01 14:07 | CON.PCM.CC_ITS ---
HPI Consult Data Date of Consult: 11/01/23 HPI Narrative HPI Narrative: CR MICHAELS, is a 68 F who presents with altered MS and suspicion of acute stroke yesterday, initial NIH scale was [address] negative, treated with tenekteplase with subsequent WORSENING of mentation status and NIH score deteriorated to 14 overnight, then further worsened to 16 this AM prior to my evaluation. She is known to have chronic atrial fibrillation and RVR was worse yesterday, also initially hypertensive with SBP > 200 mmHg so that Cardene drip was started but BP subsequently fell to SBP ~ 120 mmHg. [facility] Medical History (Updated 11/01/23 @ 11:[address] Marie Schroeder, DO) Hyperlipidemia History of hypertension Diabetes mellitus Home Medications ?Medication ?Instructions ?Recorded ?Last Taken ?Type biotin 5,000 mcg sublingual tablet 5,000 mcg sublingual DAILY 10/31/23 10/31/23 History carvedilol 25 mg tablet 50 mg PO BID 10/31/23 10/31/23 History cephalexin 250 mg capsule 500 mg PO DAILY 10/31/23 10/31/23 History cyclosporine 0.05 % eye drops in a 1 drp EACH EYE Q12H 10/31/23 Unknown History dropperette (Restasis) digoxin 250 mcg (0.25 mg) tablet 250 mcg PO DAILY 10/31/23 10/31/23 History (Digitek) estradiol 0.01% (0.1 mg/gram) 2 g vaginal MOWEFR 10/31/23 Unknown History vaginal cream (Estrace) furosemide 20 mg tablet 20 mg PO DAILY 10/31/23 10/31/23 History insulin glargine 100 unit/mL (3 35 unit subcut QPM 10/31/23 10/30/23 History mL) subcutaneous pen (Lantus Solostar U-100 Insulin) insulin lispro 100 unit/mL 1 unit subcut TID 10/31/23 10/31/23 History subcutaneous pen (Humalog KwikPen (U-100) Insulin) irbesartan 300 mg tablet 300 mg PO DAILY 10/31/23 10/31/23 History rivaroxaban 20 mg tablet (Xarelto) 20 mg PO DAILY 10/31/23 10/31/23 History rosuvastatin 5 mg tablet 5 mg PO DAILY 10/31/23 10/31/23 History tobramycin 0.3 % eye drops 1 drp EACH EYE Q8H 10/31/23 Unknown History Allergy/AdvReac Type Severity Reaction Status Date / Time morphine Allergy Mild PT UNSURE Verified 10/31/23 13:34 OF REACTION Social History Smoking Status: Never smoker ROS Review of Systems ROS Unobtainable: due to encephalopathy Objective Data Objective Data Vital Signs: Vital Signs Last response 3 Temperature 36.8 C 11/01/23 08:00 Temperature Source Temporal 11/01/23 08:00 Pulse Rate 118 H 11/01/23 12:14 Pulse Strength Normal (2+) 11/01/23 10:00 Respiratory Rate 19 H 11/01/23 10:00 Respiratory Effort Normal, Non-Labored 11/01/23 03:46 Respiratory Depth Normal 11/01/23 03:46 Respiratory Pattern Normal 11/01/23 03:46 Blood Pressure 166/77 H 11/01/23 12:14 Blood Pressure Mean 99 11/01/23 10:00 Blood Pressure Source Monitor 11/01/23 10:00 Blood Pressure Position Semi-Fowlers 11/01/23 10:00 Blood Pressure Location Left Arm 11/01/23 10:00 Pulse Ox 98 11/01/23 10:00 Oxygen Delivery Method Nasal Cannula 11/01/23 10:00 Oxygen Flow Rate (L/min) 2 11/01/23 10:00 I&O: I&O Last 24 Hours 3 10/31/23 11/01/23 11/01/23 23:59 11:59 23:59 Intake Total 529.15 / 579.15 1042.51 / 1042.51 Output Total 250 / 250 125 / 125 Balance 279.15 / 329.15 917.51 / 917.51 I&O: Total Stay 3 10/31/23 12:58 thru 11/01/23 08:24 Intake Total 1571.66 Output Total 375 Balance 1196.66 Current Meds Ordered / Administered: Current meds ordered / Administered 3 Generic Name Dose Route Start Last Admin Trade Name Freq PRN Reason Stop Dose Admin Acetaminophen 650 mg 11/01/23 11:56 11/01/23 12:59 Acetaminophen 650 Mg Suppository RC 650 mg Q6H PRN PRN Administration fever Atorvastatin Calcium 80 mg 10/31/23 22:00 10/31/23 21:52 Atorvastatin Calcium 80 Mg Tablet PO Not Given QHS CRISS Cephalexin 250 mg 11/05/23 10:00 Cephalexin 250 Mg Capsule PO DAILY CRISS Digoxin 250 mcg 11/01/23 12:00 11/01/23 12:14 Digoxin 250 Mcg/Ml Ampul IV 250 mcg DAILY CRISS Administration Epinephrine HCl 0.3 mg 10/31/23 16:22 Epi Pen (Equiv) 0.3 Mg Syringe IM 11/01/23 15:58 X1 PRN Alleric Reaction Glycerin/Hypromellose/Polyethylene 1 - 2 drp 10/31/23 16:30 Glycerin/Hypromellose/[id number] 15 Ml Bottle EACH EYE Q2H PRN DRY EYES Hydralazine HCl 5 mg 11/01/23 08:02 Hydralazine 20 Mg/Ml Vial IV 11/02/23 08:02 Q30M PRN maintain BP parameters with HR <60 Sodium Chloride 1,000 mls @ 75 mls/hr 10/31/23 16:22 11/01/23 05:53 IV 75 mls/hr .[id number] CRISS Administration Potassium Chloride 10 meq in 100 mls @ 100 mls/hr 11/01/23 12:00 11/01/23 12:18 IV BOLUS 11/01/23 15:59 100 mls/hr Q1H CIRSS Administration Vancomycin IV-PHARMACY TO DOSE 500 mls @ 250 mls/hr 11/01/23 11:52 1 each/ Sodium Chloride IV X1 PRN Rx to Dose Protocol Vancomycin HCl 1,250 mg/ 275 mls @ 167 mls/hr 11/01/23 12:30 Sodium Chloride IV 11/01/23 14:08 X1 ONE Insulin Glargine 20 unit 10/31/23 21:00 10/31/23 21:52 Insulin Glargine-Yfgn 100 Unit/Ml Pen SC 10 unit QPM CRISS Administration Insulin Human Lispro 0 unit 11/01/23 12:00 11/01/23 12:18 Insulin Lispro 100 Unit/Ml Insuln.Pen SC 3 units Q6 CRISS Administration Protocol Labetalol HCl 10 - 20 mg 11/01/23 08:02 Labetalol (Compound) 20 Mg/4 Ml Syringe IV 11/02/23 08:02 Q10M PRN PRN maintain BP parameters with HR >/=60 Nitroglycerin 0.4 mg 10/31/23 16:22 Nitroglycerin (Inpatient Use) 0.4 Mg Tab.Subl SL Q5M PRN CARDIAC/CHEST PAIN Prochlorperazine Edisylate 5 mg 10/31/23 16:22 Prochlorperazine 10 Mg/2 Ml Vial IV Q4H PRN PRN Breakthrough Nausea/Vomiting Senna/Docusate Sodium 2 tablet 10/31/23 16:22 Senna/Docusate Sodium 1 Tablet PO BID PRN Constipation Sodium Chloride 10 ml 10/31/23 16:22 0.9% Saline Lock 10 Ml Syringe IV UD PRN Before/After Tenecteplase Administration Sodium Chloride 10 - 40 ml 10/31/23 17:06 11/01/23 05:08 0.9% Saline Lock 10 Ml Syringe IV 10 ml UD PRN Administration SALINE FLUSH Physical Exam Const General Appearance: ill appearing Orientation / Consciousness: obtunded HEENT normocephalic and head/scalp atraumatic Throat: posterior oropharynx normal Eyes Pupil: PERRL Neck full ROM Chest Chest: symmetrical chest wall rise Neuro Sensorium / Orientation: obtunded Cranial Nerves: CN VII (facial) Laterality: left and other right beating nystagmus, slow Lab / Micro Data Attestation: I reviewed the patient's lab results. 11/01/23 03:40 11/01/23 03:40 Labs: Laboratory Results - last 24 hr 10/31/23 13:19: Phosphorus 4.3, Magnesium 1.9 10/31/23 13:55: Urine Color Yellow, Urine Clarity Sl. Cloudy, Urine pH 7.0, Ur Specific Kula 1.010, Urine Protein 500 H, Urine Glucose (UA) 100 H, Urine Ketones Negative, Urine Occult Blood 250 H, Urine Nitrite Negative, Urine Bilirubin Negative, Urine Urobilinogen Normal, Ur Leukocyte Esterase Negative, Urine RBC 25-50 SEEN, Urine WBC 0 SEEN, Ur Squamous Epith Cells 0-5 SEEN, Urine Bacteria 0 SEEN, Urine Mucus 0 SEEN, Urine Opiates Screen NEGATIVE, Urine Methadone Screen NEGATIVE, Ur Barbiturates Screen NEGATIVE, Ur Phencyclidine Scrn NEGATIVE, Ur Amphetamines Screen NEGATIVE, MDMA (Ecstasy) Screen NEGATIVE, U Benzodiazepines Scrn NEGATIVE, Urine Cocaine Screen NEGATIVE, U Cannabinoids Screen NEGATIVE, Ur Drug Screen Comment 10/31/23 20:31: POC Glucose 228 H 11/01/23 03:40: WBC 13.7 H, RBC 4.64, Hgb 12.8, Hct 38.6, MCV 83.2, MCH 27.6, MCHC 33.2, RDW Std Deviation 41.7, RDW Coeff of Lacy 13.8, Plt Count 320, MPV 10.7, Immature Gran % (Auto) 0.500, Neut % (Auto) 86.8 H, Lymph % (Auto) 8.6 L, Swift % (Auto) 3.9, Eos % (Auto) 0.1, Baso % (Auto) 0.1, Absolute Neuts (auto) 11.9 H, Absolute Lymphs (auto) 1.18, Nucleated RBC % 0, Sodium 139, Potassium 3.1 L, Chloride 102, Carbon Dioxide 26.0, Anion Gap 11, BUN 18, Creatinine 1.28 H, Estim Creat Clear Calc 47.84, Est GFR (MDRD) Af Amer 54 L, Est GFR (MDRD) Non-Af 44 L, BUN/Creatinine Ratio 14.1, Glucose 295 H, Hemoglobin A1c 10.9 H, Calcium 8.5, Triglycerides 127, Cholesterol 149, LDL Cholesterol 86, VLDL Cholesterol 25, HDL Cholesterol 38 L, TSH 0.89 11/01/23 08:50: Ammonia 23.0 11/01/23 11:41: POC Glucose 253 H ABG Data ABG results: ABG 11/01/23 09:17 Specimen Type ART Sample Site R Radial pH 7.49 H Bicarbonate Actual 26.6 H Total CO2 28 Base Excess 3 H O2 Saturation 98 O2 % 2.0 ABG pCO2 35.3 ABG pO2 96 Randall Test Positive O2 Delivery Device Cannula Vent Mode Not entered Rhythm Strip Rhythm Strip: A-fib Rate: 99 Ectopy: None Imaging Radiology Impression Chest X-Ray 10/31/23 13:00 IMPRESSION: Borderline cardiomegaly. Findings suggestive of vascular congestion and CHF. Electronically Signed: Mann Zamora MD at 14:47 EDT , Brain CT 10/31/23 14:29 IMPRESSION: Chronic involutional changes of the brain. No acute abnormality is seen. Electronically Signed: Mann Zamora MD at 14:57 EDT , ADDENDUM: 10/31/23 1940 IMPRESSION: undefined Brain CT 10/31/23 20:33 IMPRESSION: No evidence for acute bleed with findings unchanged previous exam. N.B. : The above Results were Read Back by Reyes Patino MD to Patricio García DO, and understanding confirmed on 10/31/2023 21:13:13 (ET). Electronically Signed: Reyes Patino MD at 21:23 EDT , ADDENDUM: 10/31/230 IMPRESSION: No evidence for acute bleed with findings unchanged previous exam. N.B. : The above Results were Read Back by Reyes Patino MD to Patricio García DO, and understanding confirmed on 10/31/2023 21:13:13 (ET). Electronically Signed: Reyes Patino MD at 21:23 EDT , Head/Neck CTA 10/31/23 21:32 IMPRESSION: Mild atherosclerotic changes of the head and neck Electronically Signed: Reyes Patino MD at 22:27 EDT , Echocardiogram 11/01/23 05:55 Interpretation Summary The estimated ejection fraction is 55-60 %. Ordering Physician: Lenny Silva Performed By: Tong Dykes RCS Assessment and Plan . Assessment and plan: #acute CVA - initial head CT negative - s/p tPA - neurologic deterioration noted last night- repeat head CT negative for acute bleed - BP suboptimal at times yesterday so underperfusion a risk #RVR afib Suggest: 1. I would favor head MRI GENE even if prior to 24 hours sadia (would have been at 14:00 today) to confirm situation given progressive deterioratiom 2. keep SBP > 160 as possible Critical Care Time: 60 minutes The entirety of this encounter was done via Telemedicine
[2023-11-01 14:28] LABS: M R Staph aureus DNA By PCR Negative (Negative); Probe Check PASS; Specimen Processing Control PASS
[2023-11-01] MEDS: Vancomycin HCl 1,250 MG in 0.9% Normal Saline (250mL Bag) 250 ML 167 MG IV (15:23)
--- NOTE | 2023-11-01 16:24 | PCM.RX.CS ---
Consult Antibiotic Management Pharmacy has been consulted to manage selected antibiotic: Vancomycin Type of Intervention Type of Consult: New start Suspected Infection Suspected Infection: Other Labs Labs: Sodium 139 mmol/L (136-145) 11/01/23 03:40 Potassium 3.1 mmol/L (3.5-5.1) L 11/01/23 03:40 Chloride 102 mmol/L (98-107) 11/01/23 03:40 Carbon Dioxide 26.0 mmol/L (21.0-32.0) 11/01/23 03:40 Anion Gap 11 (5-15) 11/01/23 03:40 BUN 18 mg/dL (7-18) 11/01/23 03:40 Creatinine 1.28 mg/dL (0.55-1.02) H 11/01/23 03:40 Est GFR (MDRD) Af Amer 54 mL/min (>60) L 11/01/23 03:40 Est GFR (MDRD) Non-Af 44 mL/min (>60) L 11/01/23 03:40 BUN/Creatinine Ratio 14.1 RATIO (10-20) 11/01/23 03:40 Glucose 295 mg/dL (74-106) H 11/01/23 03:40 Pharmacy Plan for Drug Dosing Pharmacy Plan for Drug Dosing: NEW START IV VANCOMYCIN Consulting Physician: Dr. Brooke Schroeder Indication: UTI Goal Trough: 15-20 SrCr: 1.28 CrCl: 48 mL/min Comments: Patient had initial dose of 1250mg IV x1 ordered and admin 10/31 @1523 Vancomycin Dose: 500mg IV Q12hr to start 11/02/23 @0300 Pending Level: 11/03/23 @0230, prior to 4th total dose of vancomycin per protocol Pharmacy Service will continue to monitor and adjust dosing as required.
[2023-11-01] MEDS: Piperacil/Tazobactam 3.375 GM in 0.9% Normal Saline (50mL MB+) 50 ML IV (18:23)
[2023-11-01] MEDS: Metoprolol Tartrate 5 MG/5 ML Vial IV (18:26)
--- NOTE | 2023-11-01 18:56 | NURSING ---
education re chronic illness deferred till acute illness resolving
[2023-11-01 18:58] LABS: Bedside Glucose 207 mg/dL (74-106)
[2023-11-01] MEDS: Pantoprazole Sodium 40 MG in 0.9% Normal Saline (100mL MB+) 100 ML 330 MG IV (21:15)
[2023-11-01 21:37] LABS: Bedside Glucose 186 mg/dL (74-106)
[2023-11-02] VITALS (44 sets, daily range): BP systolic 106–196; BP diastolic 63–99; PULSE 71–99; RESP 14–89; TEMP 36.6–38.5; O2SAT 95–100; BMI 26.0; BMI 26.9
[2023-11-02] MEDS: Insulin Lispro 100 UNIT/ML INSULN.PEN SC ×4 (00:58→17:53)
[2023-11-02] MEDS: Metoprolol Tartrate 5 MG/5 ML Vial IV ×3 (00:58→13:31)
[2023-11-02 01:21] LABS: Bedside Glucose 197 mg/dL (74-106)
[2023-11-02] MEDS: Vancomycin IV 500 MG/100 ML BAG 100 MG IV ×2 (04:05→15:43)
[2023-11-02 04:19] LABS: Absolute Lymphocyte Count 2.04 X10^3/uL (0.83-4.51); Absolute Neutrophil Count 8.4 X10^3/uL (2.0-7.7); Basophil# 0.07 X10^3/uL; Basophil% 0.6 % (0-1); Eosinophil# 0.04 X10^3/uL; Eosinophils% 0.3 % (0-5); Hemoglobin 12.1 g/dL (12.0-15.0); Lymphocyte # 2.04 X10^3/ul (0.83-4.51); Lymphocyte % 17.4 % (19-41); Mean Corp Hgb Conc 31.8 g/dL (32-36); Mean Corpuscular Volume 84.8 fL (81-99); Monocyte# 1.07 X10^3/uL; Monocyte% 9.1 % (0-10); NRBC Flagged by Analyzer 0 % (0-5); Neutrophil # 8.44 X10^3/uL (2.7-7.7); Neutrophil % 72.3 % (47-70); Platelet Count 289 K/mm3 (150-450); RBC Distribution Width CV 14.3 % (11.6-14.6); RBC Distribution Width SD 43.7 fl (35.1-43.9); Red Blood Count 4.48 M/mm3 (4.2-5.4); White Blood Count 11.7 K/mm3 (4.4-11.0)
[2023-11-02 05:22] LABS: ALB/GLOB Ratio 0.5 RATIO (0.9-2.4); AST(SGOT) 41 U/L (15-37); Alanine Aminotransfer ALT/SGPT 13 U/L (13-56); Alkaline Phosphatase 72 U/L (45-117); Anion Gap 5 (5-15); BUN 23 mg/dL (7-18); BUN/Creat Ratio 19.7 RATIO (10-20); Calcium,Total 8.2 mg/dL (8.5-10.1); Chloride 106 mmol/L (98-107); Creatinine, Serum 1.17 mg/dL (0.55-1.02); EST Glomerular Filtration Rate 49 mL/min (>60); Est Glom Filt Rate - Afr Amer 59 mL/min (>60); Estimated Creatinine Clearance 52.46 ml/min; Globulin 4.4 g/dL (2.2-4.2); Glucose 205 mg/dL (74-106); Magnesium 1.8 mg/dL (1.6-2.6); Phosphorus 3.4 mg/dL (2.5-4.9); Potassium 4.6 mmol/L (3.5-5.1); Protein, Total 6.4 g/dL (6.4-8.2); Sodium Level 138 mmol/L (136-145)
[2023-11-02 06:44] LABS: Bedside Glucose 203 mg/dL (74-106)
--- NOTE | 2023-11-02 07:35 | EKG12_ITS ---
Test Reason : jefe Blood Pressure : / mmHG Vent. Rate : 079 BPM Atrial Rate : 000 BPM P-R Int : 000 ms QRS Dur : 098 ms QT Int : 362 ms P-R-T Axes : 000 012 195 degrees QTc Int : 415 ms Atrial fibrillation with premature ventricular or aberrantly conducted complexes Nonspecific ST and T wave abnormality Abnormal ECG When compared with ECG of 31-OCT-2023 13:17, MANUAL COMPARISON REQUIRED, DATA IS UNCONFIRMED Confirmed by Ramón Avery ([id number]), slot editor [employer] ([id number]) on 11/04/2023 11:17:50 AM Referred By: Alexandre Confirmed By:Ramón Avery
--- NOTE | 2023-11-02 07:40 | EKG12_ITS ---
Test Reason : jefe Blood Pressure : / mmHG Vent. Rate : 037 BPM Atrial Rate : 037 BPM P-R Int : 088 ms QRS Dur : 102 ms QT Int : 450 ms P-R-T Axes : 106 013 140 degrees QTc Int : 353 ms Critical Test Result: Low HR Atrial fibrillation with slow ventricular response and PVC's Incomplete right bundle branch block Nonspecific ST and T wave abnormality Abnormal ECG When compared with ECG of 02-NOV-2023 07:35, MANUAL COMPARISON REQUIRED, DATA IS UNCONFIRMED Confirmed by Ramón Avery ([id number]), newspaper editor [employer] ([id number]) on 11/04/2023 11:17:32 AM Referred By: Alexandre Confirmed By:Ramón Avery
[2023-11-02] MEDS: Atropine Sulfate 1 MG/10 ML Syringe IV (07:47)
[2023-11-02] MEDS: Etomidate 20 MG/10 ML Vial 10 MG IV (08:00)
[2023-11-02] MEDS: Midazolam 2 MG/2 ML Syringe IV (08:00)
[2023-11-02 08:04] LABS: Bedside Glucose 190 mg/dL (74-106)
--- NOTE | 2023-11-02 08:05 | NURSING ---
0756 grandmal seizure, dr mitchell remains present 0800 postictal, apneic, bagging 100% 0803 gasping respers, cont bagging 0806 HR 91 afib, bp 163/82 prep intubation 0807 etomidate 10mg iv and versed 2mg IV given, bagging cont 0808 begin intubation #7.5 OET good color change, bilat br sds 0809 HR 89 SpO2 99% BP 150/88
[2023-11-02] MEDS: levETIRAcetam IV 2,000 MG in 0.9% Normal Saline (250mL Bag) 230 ML 1000 MG IV (08:13)
--- NOTE | 2023-11-02 08:20 | RAD_ITS ---
INDICATION: OG placement EXAMINATION/TECHNIQUE: X-RAY - XR Abdomen 1 View COMPARISON: Prior study dated: 11/01/2023 FINDINGS: The exam includes most of the chest. The abdomen is not included. Endotracheal tube with its tip approximately 3.3 cm proximal to the ammon. Lungs are unchanged. No evidence of pleural effusions. Normal cardiac silhouette. RAD/Abdomen Single View (Portable) IMPRESSION: Orogastric tube with tip in the region of the gastric fundus. Status post intubation. Electronically Signed: Aidan Rosa MD at 8:50 EDT ,
--- NOTE | 2023-11-02 08:20 | RAD_ITS ---
INDICATION: intubation EXAMINATION/TECHNIQUE: X-RAY - XR Chest 1 View COMPARISON: Prior study dated: 11/01/2023 FINDINGS: LINES/DEVICES: Endotracheal tube with its tip approximately 4 cm proximal to the ammon. Nasogastric tube extends below the level of the diaphragm. LUNGS: No consolidation, edema or effusion. No pneumothorax. MEDIASTINUM AND CARDIOVASCULAR STRUCTURES: Cardiac silhouette not enlarged. Central airways and mediastinal contour are unremarkable. BONES AND SOFT TISSUES: Unremarkable. RAD/CXR for Line Placement IMPRESSION: 1. Status post intubation and nasogastric tube placement. 2. No new infiltrate is seen. 3. No evidence of pneumothorax. Electronically Signed: Aidan Rosa MD at 8:43 EDT ,
--- NOTE | 2023-11-02 08:28 | PCM.OP.PRO ---
Procedure Report Date of Procedure: 11/02/23 Intubation Indication: Airway Protection Consent was obtained from: Emergent Preoxygenated sedation via bagging was provided for a minimum of 3 minutes. The patient had continuous cardiac as well as pulse oximetry monitoring during the procedure. Procedure sedation was provided by the administration of 10 mg of Etomidate and 2 mg of Versed . Direct laryngoscopy was then performed using a number 4 blade, which revealed a grade 1 view. A 7.5 mm endotracheal tube was visualized advancing between the cords to the level of 25.5 cm at the lip. The stylette was then removed and discarded. Tube placement was confirmed by fogging in the tube along with equal and bilateral breath sounds. Colorimetric change was visualized on the CO2 meter. The cuff was then inflated and the tube secured using a commercially available device. A good pulse oximetry waveform was seen on the monitor throughout the procedure. A portable chest x-ray has been ordered to confirm appropriate placement. The patient tolerated the procedure well. Procedures Hospitalists Procedures: 23130 Insert Emergency Airway
[2023-11-02 08:40] LABS: Base Excess -2 mmol/L (-2 to +2); Blood Gas Specimen Type ART; Mode AC; O2 Delivery Device Adult Vent; PEEP 5; PO2 153 mmHG (75-100); RR 14; SITE R Brach; SO2 99 % (95-99); Total Carbon Dioxide 24 mmol/L; pCO2 36.9 mmHg (35-45)
--- NOTE | 2023-11-02 09:00 | PN.NEURO_ITS ---
Objective Data Objective Data Vital Signs: Vital Signs Temp Pulse Resp BP Pulse Ox O2 Del Method O2 Flow Rate 99.5 F H 75 14 178/88 H 99 Mechanical Ventilator 2 11/02/23 07:00 11/02/23 08:08 11/02/23 08:08 11/02/23 07:00 11/02/23 08:08 11/02/23 08:08 11/02/23 07:00 FiO2 30 11/02/23 08:08 Oxygen Flow Rate (L/min) 2 Oxygen Delivery Method Mechanical Ventilator Weight: 82.5 kg Body Mass Index (BMI) 26.9 Intake & Output: Intake and Output for Last 24 Hours 10/31/23 11/01/23 11/02/23 23:59 23:59 23:59 Intake Total 529.15 / 579.15 3377.51 / 3377.51 100 / 100 Output Total 250 / 250 600 / 950 650 / 650 Balance 279.15 / 329.15 2777.51 / 2427.51 -550 / -550 Lab / Micro Data 11/02/23 04:05 11/02/23 04:05 Labs: Laboratory Results - last 24 hr 11/01/23 08:50: Ammonia 23.0 11/01/23 11:41: POC Glucose 253 H 11/01/23 12:50: MRSA (PCR) Negative 11/01/23 15:30: Procalcitonin 0.10 H 11/01/23 18:31: POC Glucose 207 H 11/01/23 21:14: POC Glucose 186 H 11/02/23 00:57: POC Glucose 197 H 11/02/23 04:05: WBC 11.7 H, RBC 4.48, Hgb 12.1, Hct 38.0, MCV 84.8, MCH 27.0, M CHC 31.8 L, RDW Std Deviation 43.7, RDW Coeff of Lacy 14.3, Plt Count 289, MPV 11.0, Immature Gran % (Auto) 0.300, Neut % (Auto) 72.3 H, Lymph % (Auto) 17.4 L, [place] % (Auto) 9.1, Eos % (Auto) 0.3, Baso % (Auto) 0.6, Absolute Neuts (auto) 8.4 H, Absolute Lymphs (auto) 2.04, Nucleated RBC % 0, Sodium 138, Potassium 4.6, Chloride 106, Carbon Dioxide 27.0, Anion Gap 5, BUN 23 H, Creatinine 1.17 H , Estim Creat Clear Calc 52.46, Est GFR (MDRD) Af Amer 59 L, Est GFR (MDRD) Non- Af 49 L, BUN/Creatinine Ratio 19.7, Glucose 205 H, Calcium 8.2 L, Phosphorus 3.4, Magnesium 1.8, Total Bilirubin 0.80, AST 41 H, ALT 13, Alkaline Phosphatase 72, Total Protein 6.4, Albumin 2.0 L, Globulin 4.4 H, Albumin/Globulin Ratio 0.5 L 11/02/23 06:14: POC Glucose 203 H 11/02/23 07:43: POC Glucose 190 H ABG Data ABG results: ABG 11/01/23 11/02/23 09:17 08:36 Specimen Type ART ART Sample Site R Radial R Brach pH 7.49 H 7.40 Bicarbonate Actual 26.6 H 23.0 Total CO2 28 24 Base Excess 3 H -2 O2 Saturation 98 99 O2 % 2.0 40.0 ABG pCO2 35.3 36.9 ABG pO2 96 153 H Randall Test Positive Respiration Rate 14 O2 Delivery Device Cannula Adult Vent Vent Mode Not entered AC Tidal Volume 450.0 POC PEEP 5 Radiography Diagnostic Testing: Radiology Impression Echocardiogram 11/01/23 05:55 Interpretation Summary The estimated ejection fraction is 55-60 %. Ordering Physician: Lenny Silva Performed By: Tong Dykes RCS Brain MRI 11/01/23 11:55 IMPRESSION: No acute intracranial abnormality. Chronic microvascular changes. Electronically Signed: Gregorio Chau MD at 15:59 EDT , Chest X-Ray 11/01/23 12:00 IMPRESSION: 1. Mild pulmonary venous congestion unchanged. 2. Lucency lateral aspect of right chest likely due to skinfold. Pneumothorax is doubtful. Electronically Signed: Aidan Rosa MD at 14:15 EDT , Chest X-Ray 11/02/23 08:20 IMPRESSION: 1. Status post intubation and nasogastric tube placement. 2. No new infiltrate is seen. 3. No evidence of pneumothorax. Electronically Signed: Aidan Rosa MD at 8:43 EDT , KUB X-Ray 11/02/23 08:20 IMPRESSION: Orogastric tube with tip in the region of the gastric fundus. Status post intubation. Electronically Signed: Aidan Rosa MD at 8:50 EDT , Rhythm Strip Rhythm Strip: A-fib Rate: 99 Ectopy: None Physical Exam Neuro Neuro Narrative: Exam limited as patient just got sedated for intubation Subject: Neurology Subjective CR YVETTE MICHAELS is a 68 year old F, who we are seeing in consultation today for advice on the management of altered mental status on 10/31/2023 because her noted she was not acting right and had sudden onset left-sided weakness. They are here from [place] and [facility] and at about 12:15 PM on the he noticed acute onset left-sided weakness. Upon presentation she was noted to be confused and not able to follow instructions consistently. Per ER documentation symptoms started about 45 minutes prior to arrival and stroke team was called and route. It was reported on arrival that she had a history of A- fib but was taking Coumadin and INR was assessed and she was subtherapeutic at 1.5. 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 CTA of the head and neck showed atherosclerotic changes of the aortic arch and small amount of mediastinal adenopathy. Her initial blood pressure was elevated so she was given labetalol. Initial NIH was 7 and stroke neurologist from [facility] was contacted and recommended giving TNK. Unfortunately, later we did find that she was not taking Coumadin and was actually on Xarelto. She was treated with tenecteplase before knowing that she was actually on Xarelto rather than Coumadin.blood glucose level of 242. We obtained a lipid panel on her total cholesterol 7149/LDL 86/HDL 38 and triglycerides were 127. TSH was normal at 0.89. Her UA was unremarkable. Toxicology screen was unremarkable. Has a fluctuating course. Was moving all extremities and awake this am following which she had a generalized seizure an drequire intubation. EEG Results Procedure Details EEG Procedure Details: CR MICHAELS is a 68 year old F with a past medical history of , who presents for evaluation of Electroencephalogram on DATE at TIME Assessment and Plan: Stroke Assessment/Plan CR MICHAELS is a 68 F with a history of AFib who presents for evaluation of altered mental status and had sudden onset left-sided weakness. She was awake this am moving all extremities following which she had generalized seizure. Received keppra 2gm load, versed and on propofol drip. was given TNK on 10/30. Has a UTI also Neurological examination limited as she was intubated. Neuroimaging shows CT: S mall lacunae in the insular cortex of the left temporal lobe. Lacuna in the right thalamus.CTA: negative for LVO. MRI Brain Negative for acute stroke. Likely has encephalopathy and seizure ? UTI vs other causes. Plan 1. Continue empiric meningeal coverage. 2. Plan LP once 48 hours off Xarelto. Unclear compliance 2. Encephalopathy w/up - ammonia, Vit B12, folate, thiamine. can supplement thiamine after levels sent. 3. seizure: Continue keppra 1gm BID 4. Consider EEG. Likely needs continuous EEG 5. AFib can resume AC- Heparin after LP 6. Aim normotension 7. Aggressive supportive care. Thanks for consult. I spent 30 minutes in management of this patient. Request transfer to higher level of care
[2023-11-02] MEDS: 0.9% Normal Saline (1000mL) 1,000 ML 75 ML IV (09:12)
[2023-11-02] MEDS: ACYCLOVIR IV ×2 (10:01→15:43)
[2023-11-02] MEDS: WATER IV ×2 (10:01→15:43)
[2023-11-02] MEDS: DEXTROSE 5% IV ×2 (10:01→15:43)
[2023-11-02] MEDS: Ceftriaxone 2 GM in 0.9% Normal Saline (50mL MB+) 50 ML IV (10:01)
--- NOTE | 2023-11-02 11:06 | PN.CC_ITS ---
Objective Data Objective Data Vital Signs: Vital Signs Last response 3 Temperature 37.5 C H 11/02/23 07:00 Temperature Source Core 11/02/23 07:00 Pulse Rate 75 11/02/23 08:08 Pulse Strength Normal (2+) 11/01/23 20:22 Respiratory Rate 14 11/02/23 08:08 Respiratory Effort Normal, Non-Labored 11/02/23 04:00 Respiratory Depth Normal 11/02/23 04:00 Respiratory Pattern Normal 11/02/23 08:08 Blood Pressure 178/88 H 11/02/23 07:00 Blood Pressure Mean 118 11/02/23 07:00 Blood Pressure Source Monitor 11/02/23 07:00 Blood Pressure Position Semi-Fowlers 11/02/23 07:00 Blood Pressure Location Left Arm 11/02/23 07:00 Pulse Ox 99 11/02/23 08:08 Oxygen Delivery Method Mechanical Ventilator 11/02/23 08:08 Oxygen Flow Rate (L/min) 2 11/02/23 07:00 Fraction of Inspired Oxygen (FIO2) 30 11/02/23 08:08 I&O: I&O Last 24 Hours 3 11/01/23 11/01/23 11/02/23 11:59 23:59 11:59 Intake Total 1042.51 / 3377.51 2335.00 / 3377.51 1350 / 1350 Output Total 125 / 950 475 / 950 650 / 650 Balance 917.51 / 2427.51 1860.00 / 2427.51 700 / 700 I&O: Total Stay 3 10/31/23 12:58 thru 11/02/23 09:02 Intake Total 5256.66 Output Total 1500 Balance 3756.66 Current Meds Ordered / Administered: Current meds ordered / Administered 3 Generic Name Dose Route Start Last Admin Trade Name Freq PRN Reason Stop Dose Admin Acetaminophen 650 mg 11/01/23 11:56 11/01/23 18:38 Acetaminophen 650 Mg Suppository RC 650 mg Q6H PRN PRN Administration fever Albuterol Sulfate 2.5 mg 11/02/23 08:23 Albuterol 2.5 Mg/3 Ml Vial.Neb. INHALATION Q2H PRN PRN SOB &/OR WHEEZING Chlorhexidine Gluconate 15 ml 11/02/23 10:00 Chlorhexidine 15 Ml PO BID CRISS Enalaprilat 1.25 mg 11/02/23 12:00 Enalaprilat 1.25 Mg/Ml Vial IV Q6 [facility] Protocol Glycerin/Hypromellose/Polyethylene 1 - 2 drp 10/31/23 16:30 Glycerin/Hypromellose/Dfr119 15 Ml Bottle EACH EYE Q2H PRN DRY EYES Sodium Chloride 1,000 mls @ 75 mls/hr 10/31/23 16:22 11/02/23 09:12 IV 75 mls/hr .[id number] CRISS Administration Vancomycin IV-PHARMACY TO DOSE 500 mls @ 250 mls/hr 11/01/23 11:52 1 each/ Sodium Chloride IV PRN PRN Rx to Dose Protocol Pantoprazole Sodium 40 mg/ 110 mls @ 330 mls/hr 11/01/23 22:00 11/01/23 22:28 Sodium Chloride IV Infused Q12 CRISS Infusion Vancomycin HCl 500 mg in 100 mls @ 100 mls/hr 11/02/23 03:00 11/02/23 05:08 IV Infused Q12H CRISS Infusion Ceftriaxone Sodium 2 gm/ 50 mls @ 100 mls/hr 11/02/23 10:00 11/02/23 10:01 Sodium Chloride IV 100 mls/hr Q12 CRISS Administration Acyclovir Sodium 660 mg/ 263.2 mls @ 263.2 mls/hr 11/02/23 09:00 11/02/23 10:01 Dextrose IV 263.2 mls/hr Q8 CRISS Administration Levetiracetam 1,000 mg in 100 mls @ 400 mls/hr 11/02/23 22:00 IV Q12 CRISS Propofol 1,000 mg in 100 mls @ 4.95 mls/hr 11/02/23 08:20 Diprivan CONT INF .Q12H [facility] Protocol 10 MCG/KG/MIN Insulin Glargine 25 unit 11/02/23 21:00 Insulin Glargine-Yfgn 100 Unit/Ml Pen SC QPM [facility] Insulin Human Lispro 0 unit 11/01/23 12:00 11/02/23 06:16 Insulin Lispro 100 Unit/Ml Insuln.Pen SC 2 units Q6 CRISS Administration Protocol Metoprolol Tartrate 5 mg 11/01/23 18:00 11/02/23 06:16 Metoprolol Tartrate 5 Mg/5 Ml Vial IV 5 mg Q6 [facility] Administration Protocol Nitroglycerin 0.4 mg 10/31/23 16:22 Nitroglycerin (Inpatient Use) 0.4 Mg Tab.Subl SL Q5M PRN CARDIAC/CHEST PAIN Prochlorperazine Edisylate 5 mg 10/31/23 16:22 Prochlorperazine 10 Mg/2 Ml Vial IV Q4H PRN PRN Breakthrough Nausea/Vomiting Senna/Docusate Sodium 2 tablet 10/31/23 16:22 Senna/Docusate Sodium 1 Tablet PO BID PRN Constipation Sodium Chloride 10 ml 10/31/23 16:22 11/01/23 16:49 0.9% Saline Lock 10 Ml Syringe IV 10 ml UD PRN Administration Before/After Tenecteplase Administration Sodium Chloride 10 - 40 ml 10/31/23 17:06 11/01/23 05:08 0.9% Saline Lock 10 Ml Syringe IV 10 ml UD PRN Administration SALINE FLUSH Vancomycin Protocol 1 lab 11/03/23 00:30 Vancomycin Trough/Random Due MC 11/03/23 04:30 DAILY [facility] Lab / Micro Data Attestation: I reviewed the patient's lab results. 11/02/23 04:05 11/02/23 04:05 Labs: Laboratory Results - last 24 hr 11/01/23 11:41: POC Glucose 253 H 11/01/23 12:50: MRSA (PCR) Negative 11/01/23 15:30: Procalcitonin 0.10 H 11/01/23 18:31: POC Glucose 207 H 11/01/23 21:14: POC Glucose 186 H 11/02/23 00:57: POC Glucose 197 H 11/02/23 04:05: WBC 11.7 H, RBC 4.48, Hgb 12.1, Hct 38.0, MCV 84.8, MCH 27.0, M CHC 31.8 L, RDW Std Deviation 43.7, RDW Coeff of Lacy 14.3, Plt Count 289, MPV 11.0, Immature Gran % (Auto) 0.300, Neut % (Auto) 72.3 H, Lymph % (Auto) 17.4 L, [place] % (Auto) 9.1, Eos % (Auto) 0.3, Baso % (Auto) 0.6, Absolute Neuts (auto) 8.4 H, Absolute Lymphs (auto) 2.04, Nucleated RBC % 0, Sodium 138, Potassium 4.6, Chloride 106, Carbon Dioxide 27.0, Anion Gap 5, BUN 23 H, Creatinine 1.17 H , Estim Creat Clear Calc 52.46, Est GFR (MDRD) Af Amer 59 L, Est GFR (MDRD) Non- Af 49 L, BUN/Creatinine Ratio 19.7, Glucose 205 H, Calcium 8.2 L, Phosphorus 3.4, Magnesium 1.8, Total Bilirubin 0.80, AST 41 H, ALT 13, Alkaline Phosphatase 72, Total Protein 6.4, Albumin 2.0 L, Globulin 4.4 H, Albumin/Globulin Ratio 0.5 L 11/02/23 06:14: POC Glucose 203 H 11/02/23 07:43: POC Glucose 190 H Micro: Microbiology 11/01/23 12:30 Urine Catheter - Bonner Urine Culture - Preliminary Culture exhibits no growth. ABG Data ABG results: ABG 11/02/23 08:36 Specimen Type ART Sample Site R Brach pH 7.40 Bicarbonate Actual 23.0 Total CO2 24 Base Excess -2 O2 Saturation 99 O2 % 40.0 ABG pCO2 36.9 ABG pO2 153 H Respiration Rate 14 O2 Delivery Device Adult Vent Vent Mode AC Tidal Volume 450.0 POC PEEP 5 Rhythm Strip Rhythm Strip: A-fib Rate: 99 Ectopy: None Imaging Radiology Impression Echocardiogram 11/01/23 05:55 Interpretation Summary The estimated ejection fraction is 55-60 %. Ordering Physician: Lenny Silva Performed By: Tong Dykes RCS Brain MRI 11/01/23 11:55 IMPRESSION: No acute intracranial abnormality. Chronic microvascular changes. Electronically Signed: Gregorio Chau MD at 15:59 EDT , Chest X-Ray 11/01/23 12:00 IMPRESSION: 1. Mild pulmonary venous congestion unchanged. 2. Lucency lateral aspect of right chest likely due to skinfold. Pneumothorax is doubtful. Electronically Signed: Aidan Rosa MD at 14:15 EDT , Chest X-Ray 11/02/23 08:20 IMPRESSION: 1. Status post intubation and nasogastric tube placement. 2. No new infiltrate is seen. 3. No evidence of pneumothorax. Electronically Signed: Aidan Rosa MD at 8:43 EDT , KUB X-Ray 11/02/23 08:20 IMPRESSION: Orogastric tube with tip in the region of the gastric fundus. Status post intubation. Electronically Signed: Aidan Rosa MD at 8:50 EDT , Assessment and Plan . Assessment and plan: Assessment: #acute altered MS/ focal neuro signs on presentation with negative CT/ MRI - s/p TNK - LOC deterioration noted past 24-36 hours - seizure witnessed this AM-> intubated - febrile 103.0 #RVR afib - on xarelto apparently Suggest: 1. Blood gases reviewed, vent adjusted 2. No vent weaning presently 3. AEDs per Neuro 4. Follow up EEG 5. Agree with empiric meningitis coverage until LP can be obtained off Xarelto a sufficient time period 6. I would favor transfer to [facility] with better in-house support for this complicated case Critical Care Time: 50 minutes The entirety of this encounter was done via Telemedicine Physical Exam Const General Appearance: patient mechanically ventilated HEENT normocephalic Eyes PERRL Eyes Narrative: right beating nystagmus has resolved Neck full ROM Resp Auscultation: diminished lung sounds Cardio regular rate and regular rhythm Subjective Subjective Eventful night. Her MRI yesterday was unrevealing despite her presenting with clear focal neurologic signs which resolved, noted to be febrile to T103.0 y esterday, then she had recurring episodes of bradycardia associated with recumbent positioning (which was redemonstrated per the staff several times) finally she seized this morning and required intubation for airway protection. Neurology has evaluated and is making recommendations for EEG, anticonvulsants.
--- NOTE | 2023-11-02 11:20 | NURSING ---
0738 This RN and EXERCISE INSTRUCT repositioning pt in bed. placed pt flat, within several seconds pt jefe in to 40s and apneic. returned to upright position, ORNAMENTAL MACHINE OPERATOR called.
[2023-11-02] MEDS: Propofol 10MG/Ml 1,000 MG/100 ML Bottle 5 MG CONT INF (12:05)
[2023-11-02] MEDS: Pantoprazole Sodium 40 MG in 0.9% Normal Saline (100mL MB+) 100 ML 330 MG IV (12:12)
[2023-11-02] MEDS: 0.9% Saline Lock 10 ML Syringe IV (12:15)
[2023-11-02] MEDS: TITRATION PARAMETER CHANGE 1 EACH IV (12:18)
[2023-11-02 12:48] LABS: Bedside Glucose 248 mg/dL (74-106)
[2023-11-02] MEDS: Enalaprilat 1.25 MG/ML Vial IV ×2 (13:37→18:00)
[2023-11-02] MEDS: Chlorhexidine 15 ML PO (15:44)
--- NOTE | 2023-11-02 16:07 | NURSING ---
education re chronic illness deferred till acute illness resolving
--- NOTE | 2023-11-02 16:36 | PCM.DC.SUM ---
Providers Date of Admission: 10/31/23 Date of Discharge: 11/02/23 Primary Care Physician: CONCETTA BUTLER Consultations 10/31/23 16:22 Consult: Seafood Manager / Pulmonary Medicine Routine Consulting Provider: Pulmonary Medicine yane Mcginnis Reason for Consult: Acute Ischemic Stroke/TIA EMERGENT Consult: No Notified: Yes Date Notified: 10/31/23 Time Notified: 15:58 Method of Notification: Text Consult: Tele-Neurology Routine Consulting Provider: [facility] Reason for Consult: Acute Ischemic Stroke/TIA EMERGENT Consult: No Notified: Yes Date Notified: 10/31/23 Time Notified: 15:58 Method of Notification: ED Physician Initiated Nursing Unit Staff Notify [facility] of Tele-Neurology Consult: Yes Reason For Visit: STROKE S/P TNK Diagnosis Discharge Diagnosis (1) Acute encephalopathy: Status: Acute Code(s): G93.40 - Encephalopathy, unspecified (2) Acute stroke due to ischemia: Status: Acute Code(s): I63.9 - Cerebral infarction, unspecified (3) A-fib: Status: Acute Code(s): I48.91 - Unspecified atrial fibrillation Medications at Discharge Home Medications biotin 5,000 mcg sublingual tablet 5,000 mcg sublingual DAILY 10/31/23 carvedilol 25 mg tablet 50 mg PO BID 10/31/23 cephalexin 250 mg capsule 500 mg PO DAILY 10/31/23 cyclosporine 0.05 % eye drops in a dropperette (Restasis) 1 drp EACH EYE Q12H 10/31/23 digoxin 250 mcg (0.25 mg) tablet (Digitek) 250 mcg PO DAILY 10/31/23 estradiol 0.01% (0.1 mg/gram) vaginal cream (Estrace) 2 g vaginal MOWEFR 10/31/23 furosemide 20 mg tablet 20 mg PO DAILY 10/31/23 insulin glargine 100 unit/mL (3 mL) subcutaneous pen (Lantus Solostar U-100 Insulin) 35 unit subcut QPM 10/31/23 insulin lispro 100 unit/mL subcutaneous pen (Humalog KwikPen (U-100) Insulin) 1 unit subcut TID 10/31/23 irbesartan 300 mg tablet 300 mg PO DAILY 10/31/23 rivaroxaban 20 mg tablet (Xarelto) 20 mg PO DAILY 10/31/23 rosuvastatin 5 mg tablet 5 mg PO DAILY 10/31/23 tobramycin 0.3 % eye drops 1 drp EACH EYE Q8H 10/31/23 Hospital Course Operations None Procedures 2-D Echocardiogram, Electroencephalogram, EKG, Intubation and - (CT brain x 2/CTA head and neck x 2/MRI brain/chest x-ray/KUB) Summary of Care Provided Minutes Spent on Discharge: 57 Hospital Course: Patient is a 68-year-old white female who presented to emergency department [facility] on 10/31/2023 because her noted she was not acting right and had sudden onset left-sided weakness. They are here from [facility] and at about 12:15 PM on the he noticed acute onset left-sided weakness. Upon presentation she was noted to be confused and not able to follow instructions consistently. Per ER documentation symptoms started about 45 minutes prior to arrival and stroke team was called and route. It was reported on arrival that she had a history of A-fib but was taking Coumadin and INR was assessed and she was subtherapeutic at 1.5. 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 CTA of the head and neck showed atherosclerotic changes of the aortic arch and small amount of mediastinal adenopathy. Her initial blood pressure was elevated so she was given labetalol. Initial NIH was 7 and stroke neurologist from [facility] was contacted and recommended giving TNK. Unfortunately, later we did find that she was not taking Coumadin and was actually on Xarelto. She was treated with tenecteplase before knowing that she was actually on Xarelto rather than Coumadin. Vital signs on presentation were temperature of 98.1, heart rate 97, blood pressure 184/98, respiratory rate was 22 and oxygen saturation was 93% on room air. Her CBC was unremarkable. Coags were abnormal with elevated PT/INR/PTT likely related to Xarelto use. Her chemistry panel showed hypokalemia potassium of 3.3 but was otherwise unremarkable except for blood glucose level of 242. We obtained a lipid panel on her total cholesterol 149/LDL 86/HDL 38 and triglycerides were 127. TSH was normal at 0.89. Her UA was unremarkable. Toxicology screen was unremarkable. Patient had an acute worsening in her NIH up from 7-16 overnight of her first admission and. A stat CT and CTA were performed through the night. The CT was negative for any acute bleed and findings were unchanged from previous exam and CTA head and neck showed only mild atherosclerotic changes of the head and neck with no LVO. Per her she was admitted to [facility] and had both an outpatient testing performed neurologically for incidental findings found when she had a urinary tract infection but workup was negative at that time. He reported this did include a brain biopsy. informed us that he suspects her compliance with her medications has been variable. MRI with and without contrast was performed and was negative for acute infarct or any other acute findings. She did develop a fever with a rectal temperature of 103 ?F and her antibiotics were changed from ceftriaxone alone treating her urinary tract infection to vancomycin and Zosyn. An LP was ordered however she had Xarelto on 10/31/2023 last so was deferred until she had been off Xarelto for 48 to 72 hours. Blood cultures were ordered and a urine culture was added. Chest x-ray was performed and negative for any infiltrate or acute findings. Procalcitonin was ordered and found to be 0.10. MRSA PCR was negative. Echocardiogram was unremarkable and showed an EF of 55 to 60% with normal valves and negative bubble study. On the a.m. of 11/02/2023 rapid response was called. Nursing was at the bedside and laying her flat to scoot up in bed at which time she bradycardia down and had agonal respirations. They immediately sat her up in bed at which time her heart rate recovered and her mentation improved. She was more alert and moving all 4 extremities on the a.m. of 11/02/2023 however she was holding her neck quite rigid looking up resisting flexion. I was concerned that she may have some manage she has missed signs at this time so we transition her antibiotics to ceftriaxone 2 g twice daily, vancomycin was already started and added acyclovir. At that time she had a generalized tonic-clonic seizure that lasted about 45 to 60 seconds and broke independently. She was loaded with Keppra 1 g and Keppra 1000 mg twice daily was added. At that time she was intubated to control her airway. She was intubated and placed on propofol for sedation. EEG was ordered and pending at the time of discharge. Teleneurology was evaluating the patient throughout the hospital course and at that time after discussion with her on the morning events she agreed with transferring to tertiary center for further workup. She felt she needed 24-hour EEG and more of a neurology presence. We do not have in-house neurology available. [facility] transfer center was notified and I discussed the case with them. She is excepted by Dr. Rhoades and we were told a bed will become available later on the day of 11/02/2023. She was transferred in critical condition to [facility]. Family was updated. Images were pushed to [facility] prior to discharge. Discharge diagnoses: Acute onset left-sided weakness Toxic/metabolic encephalopathy New onset seizures Febrile illness Leukocytosis Chronic A-fib Hypertension Hyperlipidemia QT-2-[id number]--> A1c was greater than 10 Recurrent UTIs Physical Exam Const alert, average body habitus and well nourished Constitutional Narrative: Alert, upper middle-aged, white female, lying in bed, patient with acute onset generalized tonic-clonic seizure while he was at the bedside, neck was rigid with resistance to flexion, no meaningful interaction and patient intermittently following commands per discussion with nursing however was decompensating while was at the bedside General Appearance: well kempt and well developed Orientation / Consciousness: lethargic HEENT normocephalic, head/scalp atraumatic and moist oral mucous membranes Eyes PERRL and conjunctivae normal Eyes Narrative: No scleral icterus Neck no lymphadenopathy and supple Neck Narrative: Trachea midline, no thyroid enlargement Resp normal respiratory effort, no retractions, no use of accessory muscles and clear to auscultation bilaterally Resp Narrative: Agonal breathing with seizure and while lying flat during bradycardic event but otherwise unremarkable Auscultation: Negative for rales, rhonchi or wheezes Cardio regular rate, S1 normal heart sound, S2 normal heart sound, no murmurs, no rub and no gallops Cardio Narrative: Irregular irregular rhythm GI normal to inspection, nondistended, normoactive bowel sounds, soft to palpation and non-tender Extremity no clubbing, cyanosis or edema Extremity Narrative: Peripheral pulses are 2+ bilaterally Skin no rashes or lesions noted, no wounds, skin turgor normal, no jaundice, no petechiae and no mottling Skin Narrative: Intact with no lesions Neuro Neuro Narrative: Awake and alert but not consistently interactive, will periodically follow intermittent commands, generalized tonic-clonic seizure was at the bedside, not vocalizing, neck is rigid, 2-3 beat clonus bilateral lower extremity, reflexes are unremarkable, does not track consistently Sensorium / Orientation: Negative for oriented to person, oriented to place or oriented to time Speech: Negative for speech normal Psych Psych Narrative: Unable to assess Weight / BMI Weight Weight: 82.5 kg Body Mass Index (BMI) 26.9 ABG / Lab / Microbiology Data 11/02/23 04:05 11/02/23 04:05 Laboratory: Laboratory Results - last 24 hr 11/01/23 15:30: Procalcitonin 0.10 H 11/01/23 18:31: POC Glucose 207 H 11/01/23 21:14: POC Glucose 186 H 11/02/23 00:57: POC Glucose 197 H 11/02/23 04:05: WBC 11.7 H, RBC 4.48, Hgb 12.1, Hct 38.0, MCV 84.8, MCH 27.0, MCHC 31.8 L, RDW Std Deviation 43.7, RDW Coeff of Lacy 14.3, Plt Count 289, MPV 11.0, Immature Gran % (Auto) 0.300, Neut % (Auto) 72.3 H, Lymph % (Auto) 17.4 L, Nolan % (Auto) 9.1, Eos % (Auto) 0.3, Baso % (Auto) 0.6, Absolute Neuts (auto) 8.4 H, Absolute Lymphs (auto) 2.04, Nucleated RBC % 0, Sodium 138, Potassium 4.6, Chloride 106, Carbon Dioxide 27.0, Anion Gap 5, BUN 23 H, Creatinine 1.17 H, Estim Creat Clear Calc 52.46, Est GFR (MDRD) Af Amer 59 L, Est GFR (MDRD) Non-Af 49 L, BUN/Creatinine Ratio 19.7, Glucose 205 H, Calcium 8.2 L, Phosphorus 3.4, Magnesium 1.8, Total Bilirubin 0.80, AST 41 H, ALT 13, Alkaline Phosphatase 72, Total Creatine Kinase Cancelled, Total Protein 6.4, Albumin 2.0 L, Globulin 4.4 H, Albumin/Globulin Ratio 0.5 L, Triglycerides Cancelled 11/02/23 06:14: POC Glucose 203 H 11/02/23 07:43: POC Glucose 190 H 11/02/23 12:14: POC Glucose 248 H Microbiology: Microbiology 10/31/23 14:46 Blood Culture (Wb) - Left Wrist Blood Culture - Preliminary No growth in 48 hours. 10/31/23 14:20 Blood Culture (Wb) - Left Wrist Blood Culture - Preliminary No growth in 48 hours. 11/02/23 08:37 Sputum, Induced/Lukens Gram Stain - Final 11/01/23 12:30 Urine Catheter - Bonner Urine Culture - Preliminary Culture exhibits no growth. ABG: ABG 11/02/23 08:36 Specimen Type ART Sample Site R Brach pH 7.40 Bicarbonate Actual 23.0 Total CO2 24 Base Excess -2 O2 Saturation 99 O2 % 40.0 ABG pCO2 36.9 ABG pO2 153 H Respiration Rate 14 O2 Delivery Device Adult Vent Vent Mode AC Tidal Volume 450.0 POC PEEP 5 Radiography Diagnostic Testing: Radiology Impression Chest X-Ray 11/02/23 08:20 IMPRESSION: 1. Status post intubation and nasogastric tube placement. 2. No new infiltrate is seen. 3. No evidence of pneumothorax. Electronically Signed: Aidan Rosa MD at 8:43 EDT , KUB X-Ray 11/02/23 08:20 IMPRESSION: Orogastric tube with tip in the region of the gastric fundus. Status post intubation. Electronically Signed: Aidan Rosa MD at 8:50 EDT , Meaningful Use Info Meaningful Use Meaningful Use Diagnoses (Choose all that apply): None applicable Ischemic Stroke Statin Dosing Therapy Reference: STATIN DOSE THERAPY REFERENCE: * Patients > 75 years receive moderate or high dose statin therapy. * Patients 75 years or YOUNGER should receive HIGH intensity statin dose unless contraindicated. You will be required to document reason for non-treatment if statin daily dose does not meet guidelines. HIGH DOSE STATIN THERAPY DAILY Atorvastatin > than or = to 40 mg Rosuvastatin > than or = to 20 mg Amlodipine + Atorvastatin > than or = to 2.5/40 mg Ezetimibe + Simvastatin 10/80 mg Simvastatin 80mg Discharge Plan Admission Admit Date/Time: 10/31/23 15:55 Primary Reason for Your Visit: Left-sided weakness/altered mental status Attending Provider: Marie Schroeder Primary Care Provider: CONCETTA BUTLER Consulting Providers: Roman Schwartz; Johnny Ma; Luis Pierce; Natan Jauregui; Colten Ramirez; Galina Alvarez; Phil Allen; Himanshu Irealnd; Erum Rubi; Vilma Lockwood; To Jackson; Yehuda Miles; Varghese Hall; Nino Mccann; Bobby Oliver; Julio Kiran; Renée Chairez NP; Harpreet Rhoades; Suhail Rodriguez; Cynthia Savage; Radha Mcneal; Violette Vaca; Olu Miller; Sarah Partida; Jorge Thapa; Concetta Cisneros; Sudarshan Castelan; Tiana Waldron; Deion Gerber; Shwana Sen; Kathy Marks; Su Cox; Pa Carson; Alma Townsend; Mark Riley; Elizabeth Schroeder; Annalise Abad; Lenny Silva; Nisa Paredes; Alfonso Kellogg; Kiran Esposito; HERMILO GUADALUPE; Daniel Wise; Julia Alberts Discharge Orders/Prescriptions Prescriptions: No Action carvedilol 25 mg tablet 50 mg PO BID Rx Instructions: must administer with a meal/food furosemide 20 mg tablet 20 mg PO DAILY digoxin [Digitek] 250 mcg (0.25 mg) tablet 250 mcg PO DAILY cephalexin 250 mg capsule 500 mg PO DAILY Patient Comments: 500 DAILY X1W THEN 250 DAILY irbesartan 300 mg tablet 300 mg PO DAILY biotin 5,000 mcg tablet, sublingual 5,000 mcg sublingual DAILY rosuvastatin 5 mg tablet 5 mg PO DAILY Xarelto 20 mg tablet 20 mg PO DAILY Rx Instructions: must administer with evening meal insulin lispro [Humalog KwikPen Insulin] 100 unit/mL insulin pen 1 unit subcut TID Patient Comments: SLIDING SCALE insulin glargine [Lantus Solostar U-100 Insulin] 100 unit/mL (3 mL) insulin pen 35 unit subcut QPM cyclosporine [Restasis] 0.05 % dropperette 1 drp EACH EYE Q12H tobramycin 0.3 % drops 1 drp EACH EYE Q8H estradiol [Estrace] 0.01 % (0.1 mg/gram) cream 2 g vaginal MOWEFR Referrals / Follow Up: CONCETTA BUTLER [Other] Care Physician,No Primary [Non-Staff] - Disposition Disposition (needs filled in before D/C Order can be placed): Acute Care Hospital Charges/Coding Visit Charges Inpatient E&M: 82059 Disch Hosp >30min
[2023-11-02 16:45] LABS: CPK Total, Creatine Kinase 206 U/L (26-192); Triglycerides 146 mg/dL
[2023-11-02 18:33] LABS: Bedside Glucose 232 mg/dL (74-106)
[2023-11-02] MEDS: Propofol 10MG/Ml 1,000 MG/100 ML Bottle 9.9 MG CONT INF (19:23)
[2023-11-03 08:51] LABS: Vitamin B12 187 pg/mL (211-911)
== END 2023-11-02 20:05 | disposition short-term general hospital (02) | DRG 64 ==
LOC: ED 14:25 → ICU 15:56
PROVIDERS: Admitting Provider Internal Medicine; Emergency Provider Emergency Medicine; Visit Provider Internal Medicine
DX: I63.49 Cerebral infarction due to embolism of other cerebral artery (principal); G92.8 Other toxic encephalopathy; I48.20 Chronic atrial fibrillation, unspecified; E11.9 Type 2 diabetes mellitus without complications; I11.0 Hypertensive heart disease with heart failure; I50.9 Heart failure, unspecified; Z79.4 Long term (current) use of insulin; E78.5 Hyperlipidemia, unspecified; R29.710 NIHSS score 10; Z79.01 Long term (current) use of anticoagulants; Z79.899 Other long term (current) drug therapy
CPT/HCPCS: 31500; 31720; 36600; 70450; 70496; 70498; 70553; 71045; 74018; 80048; 80053; 80061; 80307; 81001; 82140; 82550; 82607; 82747; 82803; 82962; 83036; 83735; 84100; 84145; 84443; 84478; 84484; 85014; 85025; 85610; 85730; 87040; 87070; 87086; 87205; 87641; 93005; 93306; 94002; 94762; 95819; 99252; 99285; A9575; J3101; J7030; J7050; J7120; Q9957; Q9967; A4216; G0463; J0696